=== PATIENT | male | born 1940 | race Caucasian/White ===

== ENCOUNTER 2021-06-30 20:50 | Inpatient (IN) | payer MEDICARE ==
--- NOTE | 2021-06-30 21:54 | ED ---
Chest Pain HPI - General Chief Complaint: Chest Pain Stated Complaint: Pain throughout left arm Source: patient, RN notes reviewed, old records reviewed Mode of arrival: ambulatory Limitations: no limitations - History of Present Illness Initial Comments: This is an 79-year-old male to the ER for evaluation patient presents today for evaluation regarding chest pain especially chest pain with exertion walking his dog. This happened on 2 different occasions today where he also became sweaty with shortness of breath chest pain chest pain to his left shoulder and left jaw. Patient originally thought it may be just muscle skeletal related but he has had history of CABG in the says feelings prior chest pain MD Complaint: chest pain -: hour(s) Onset: during exertion Pain Location: substernal, left chest Pain Radiation: none, LUE Severity: moderate Severity scale (1-10): 4 Quality: tightness Consistency: constant Improves With: nothing Worsens With: nothing Anginal Symptoms: diaphoresis, dyspnea Other Symptoms: palpitations Treatments Prior to Arrival: none - Related Data Home Medications Medication Instructions Recorded Confirmed Aspirin [Adult Low Dose Aspirin EC] 81 mg PO DAILY 01/12/16 01/12/16 Metoprolol Tartrate 25 mg PO DAILY 01/12/16 01/17/16 Pantoprazole [Protonix] 40 mg PO DAILY 01/12/16 01/17/16 Allergies Allergy/AdvReac Type Severity Reaction Status Date / Time No Known Allergies Allergy Verified 06/30/21 21:11 Review of Systems ROS Statement: Those systems with pertinent positive or pertinent negative responses have been documented in the HPI. ROS Other: All systems not noted in ROS Statement are negative. EKG Findings - EKG Comments: EKG Findings:: EKG shows sinus rhythm 88 NV 166 QRS 76 QTC 430 Past Medical History Past Medical History: CVA/TIA, GERD/Reflux Additional Past Medical History / Comment(s): PRE CA LESIONS REMOVED IN PAST, LESIONS REMOVED FROM BACK 01/12/16, TIA 2014, STATES NO RESIDUAL EFFECTS History of Any Multi-Drug Resistant Organisms: None Reported Past Surgical History: Cholecystectomy, Coronary Bypass/CABG Additional Past Surgical History / Comment(s): CABG X2 Past Anesthesia/Blood Transfusion Reactions: No Reported Reaction Past Psychological History: No Psychological Hx Reported Smoking Status: Never smoker Past Alcohol Use History: Occasional Past Drug Use History: None Reported - Past Family History Mother Family Medical History: Cancer Additional Family Medical History / Comment(s): COLON General Exam General appearance: alert, in no apparent distress Head exam: Present: atraumatic, normocephalic, normal inspection Eye exam: Present: normal appearance, PERRL, EOMI. Absent: scleral icterus, conjunctival injection, periorbital swelling ENT exam: Present: normal exam, mucous membranes moist Neck exam: Present: normal inspection. Absent: tenderness, meningismus, lymphadenopathy Respiratory exam: Present: normal lung sounds bilaterally. Absent: respiratory distress, wheezes, rales, rhonchi, stridor Cardiovascular Exam: Present: regular rate, normal rhythm, normal heart sounds. Absent: systolic murmur, diastolic murmur, rubs, gallop, clicks GI/Abdominal exam: Present: soft, normal bowel sounds. Absent: distended, tenderness, guarding, rebound, rigid Extremities exam: Present: normal inspection, full ROM, normal capillary refill. Absent: tenderness, pedal edema, joint swelling, calf tenderness Back exam: Present: normal inspection Neurological exam: Present: alert, oriented X3, CN II-XII intact Psychiatric exam: Present: normal affect, normal mood Skin exam: Present: warm, dry, intact, normal color. Absent: rash Course Vital Signs 06/30/21 06/30/21 21:05 22:12 Temperature 98.6 F Pulse Rate 89 75 Respiratory 19 16 Rate Blood Pressure 150/83 152/77 O2 Sat by Pulse 97 97 Oximetry - Reevaluation(s) Reevaluation #1: 07/01/21 00:18 Medical record is reviewed Reevaluation #2: 07/01/21 00:18 Patient does have persistently episodic chest pain here in the ER Reevaluation #3: 07/01/21 00:18 Patient is informed of results and questions are answered - Consultations Consultation #1: spoke w TEZ ok for admission Chest Pain MDM - MDM 81 male to the ER for evaluation patient presents today for evaluation regards to chest pain chest pain with exertion he does have non-ST elevated MT will be admitted for cardiac evaluation and treatment Critical Care Time Critical Care Time: Yes Total Critical Care Time: 31 Disposition Clinical Impression: Chest pain, Acute non-ST elevation myocardial infarction (NSTEMI) Disposition: ADMITTED IP TO THIS HOSP Condition: Serious Is patient prescribed a controlled substance at d/c from ED?: No Referrals: None,Stated [Primary Care Provider] - 1-2 days
--- NOTE | 2021-06-30 22:08 | XR ---
EXAMINATION TYPE: XR chest 2V DATE OF EXAM: 06/30/2021 COMPARISON: NONE HISTORY: Pain TECHNIQUE: 2 view FINDINGS: There is no heart failure nor confluent pneumonic infiltrate. Costophrenic angles are clear . Thoracic aorta is atheromatous. There is some spurring in the thoracic spine. IMPRESSION: No active cardiopulmonary disease. Normal heart.
[2021-06-30 22:35] LABS: ALT 33 U/L (4-49); African American GFR (CKD) >90 (>60 ml/min/1.73 sqM); Albumin 4.6 g/dL (3.5-5.0); Anion Gap 10 mmol/L; Blood Urea Nitrogen 13 mg/dL (9-20); Carbon Dioxide 23 mmol/L (22-30); Chloride 104 mmol/L (98-107); Glucose 71 mg/dL (74-99); Non-African American GFR(CKD) 85 (>60 ml/min/1.73 sqM); Sodium 137 mmol/L (137-145); Total Bilirubin 0.6 mg/dL (0.2-1.3); Total Protein 7.6 g/dL (6.3-8.2)
[2021-06-30 22:37] LABS: Partial Thromboplastin Time 23.3 sec (22.0-30.0); Prothrombin Time 10.7 sec (9.0-12.0)
[2021-06-30 22:41] LABS: HCT 36.9 % (39.0-53.0); HGB 13.1 gm/dL (13.0-17.5); MCHC 35.3 g/dL (31.0-37.0); MCV 96.2 fL (80.0-100.0); Mean Platelet Volume 7.4; Platelet Count 226 k/uL (150-450); RBC 3.84 m/uL (4.30-5.90); RDW 12.8 % (11.5-15.5); WBC 6.3 k/uL (3.8-10.6)
[2021-06-30 23:14] LABS: Band Neutrophils % 1 %; Eosinophils # (M) 0.25 k/uL (0-0.7); Lymphocytes # (M) 1.89 k/uL (1.0-4.8); Monocytes # (M) 0.57 k/uL (0-1.0); Neutrophils % (M) 56 %; Nucleated Red Blood Cells 0 /100 WBC (0-0); Total Cells Counted 100
[2021-06-30 23:17] LABS: AST 37 U/L (17-59); Alkaline Phosphatase 51 U/L (38-126); Magnesium 2.1 mg/dL (1.6-2.3); Potassium 4.1 mmol/L (3.5-5.1)
[2021-06-30 23:50] LABS: Creatine Kinase 202 U/L (55-170); Lipase 141 U/L (23-300)
[2021-07-01] MEDS ORDERED: NITROGLYCERIN SL TABS 0.4 MG TAB SUBLINGUAL PRN ×2 (00:12→10:17)
[2021-07-01] MEDS ORDERED: HEPARIN SODIUM 1,000 UN/ML (10ML VL) IV ONE (00:12)
[2021-07-01] MEDS ORDERED: ASPIRIN 81 MG PO STA (00:12)
[2021-07-01] MEDS ORDERED: MORPHINE SULFATE 4 MG/ML SYRINGE IV PRN (00:12)
[2021-07-01] MEDS: SODIUM CHLORIDE 0.9% 1,000 ML IV SCH ×2 (02:08→17:56)
[2021-07-01] MEDS: HEPARIN SOD,PORK IN 0.45% NACL 25,000 UNIT in 0.45% NACL 1 250ML.BAG IV SCH (02:09)
[2021-07-01] MEDS ORDERED: METOPROLOL TARTRATE 25 MG TAB PO SCH (09:00)
[2021-07-01] MEDS ORDERED: SODIUM CHLORIDE 0.9% 1,000 ML in EMPTY BAG 1 BAG IV ONE (10:17)
[2021-07-01] MEDS ORDERED: ALPRAZolam 0.25 MG TAB PO PRN (10:17)
[2021-07-01] MEDS ORDERED: ALPRAZolam 0.5 MG TAB PO PRN (10:17)
--- NOTE | 2021-07-01 10:28 | P.CRDCN ---
History of Present Illness Consult date: 07/01/21 Consult reason: chest pain History of present illness: The patient is an 81-year-old male with past medical history of coronary artery disease who follows with Dr. Nayak at [facility], who presented to the emergency room after experiencing chest pain over the last 2 months. The patient states he remains very active and typically walks 5-6 miles per day. Previously he had noted that he would develop some chest discomfort which would resolve quickly despite continued walking. Over the last 1-2 days he had had increased chest pain which caused him to have to stop and sit down. His most recent echo did have associated left jaw and facial discomfort. He states it did eventually resolve on its own without the use of nitroglycerin. DIAGNOSTICS: EKG shows sinus mechanism with 0.[address] depression in inferior lateral leads Chest x-ray shows no active cardiopulmonary disease Laboratory data: WBC 6.3, hemoglobin 13.1, hematocrit 36.9, platelet 226, sodium 137, potassium 4.1, BUN 13, creatinine 0.77, AST 37, ALT 33, troponin 0.10, 0.14, 0.13, BNP 81 Vital signs: Temp 98F, respiratory rate 16, pulse rate 72, SpO2 98% on room air, blood pressure 134/60 PAST MEDICAL HISTORY: Coronary artery disease status post CABG approximately 15 years prior, TIA, hypertension REVIEW OF SYSTEMS: No fever or chills. No cough or expectoration. No diaphoresis. Patient denies headache, dizziness, blurred vision, double vision. Patient denies any stomach discomfort. No nausea, vomiting. No hematochezia. No hematemesis. Denies any black stools or blood in his stools. Denies dysuria or hematuria. No muscle weakness or numbness. Positive for exertional chest pain with radiation to the left jaw. No dyspnea, orthopnea, or PND PHYSICAL EXAMINATION: This is a 81-year-old male in no apparent distress at the time of my examination. HEENT: Head is atraumatic, normocephalic. Pupils are equal, round. Sclerae anicteric. Conjunctivae are clear. Mucous membranes of the mouth are moist. Neck is supple. There is no jugular venous distention. No carotid bruit is heard. CHEST EXAMINATION: Lungs are clear to auscultation. No chest wall tenderness is noted on palpation or with deep breathing. HEART EXAMINATION: Heart regular rate and rhythm. S1, S2 heard. No murmurs, gallops or rub. ABDOMEN: Soft, nontender. Bowel sounds are heard. No organomegaly noted. EXTREMITIES: 2+ peripheral pulses with no evidence of peripheral edema and no calf tenderness noted. NEUROLOGIC EXAMINATION: Patient is awake, alert and oriented x3. FINAL ASSESSMENT AND PLAN: Non-ST elevated myocardial infarction, elevated troponins History of coronary artery disease, prior CABG History of hypertension History of TIA PLAN: Continue heparin drip Start on statin therapy Proceed with coronary angiogram The patient has been seen and evaluated. Plan of care has been reviewed and agreed upon by Dr Elias. Past Medical History Past Medical History: CVA/TIA, GERD/Reflux Additional Past Medical History / Comment(s): PRE CA LESIONS REMOVED IN PAST, LESIONS REMOVED FROM BACK 01/12/16, TIA 2014, STATES NO RESIDUAL EFFECTS History of Any Multi-Drug Resistant Organisms: None Reported Past Surgical History: Cholecystectomy, Coronary Bypass/CABG Additional Past Surgical History / Comment(s): CABG X2 Past Anesthesia/Blood Transfusion Reactions: No Reported Reaction Past Psychological History: No Psychological Hx Reported Smoking Status: Never smoker Past Alcohol Use History: Occasional Past Drug Use History: None Reported - Past Family History Mother Family Medical History: Cancer Additional Family Medical History / Comment(s): COLON Medications and Allergies Home Medications Medication Instructions Recorded Confirmed Type Aspirin [Adult Low Dose Aspirin EC] 81 mg PO DAILY 01/12/16 07/01/21 History Pantoprazole [Protonix] 40 mg PO DAILY 01/12/16 07/01/21 History amLODIPine [Norvasc] 5 mg PO HS 07/01/21 07/01/21 History Allergies Allergy/AdvReac Type Severity Reaction Status Date / Time No Known Allergies Allergy Verified 07/01/21 09:03 Physical Exam Vitals: Vital Signs Temp Pulse Resp BP Pulse Ox 07/01/21 05:21 98.0 F 72 16 134/60 98 07/01/21 02:18 97.7 F 77 16 146/90 98 06/30/21 22:12 75 16 152/77 97 06/30/21 21:05 98.6 F 89 19 150/83 97 Intake and Output 06/30/21 07/01/21 07/01/21 22:59 06:59 14:59 Other: Weight 68.946 kg Results 06/30/21 22:11 06/30/21 22:11 Cardiac Enzymes 06/30/21 06/30/21 07/01/21 Range/Units 22:11 22:11 01:56 AST 37 (17-59) U/L Troponin I 0.105 H* 0.140 H* (0.000-0.034) ng/mL 07/01/21 Range/Units 05:33 AST (17-59) U/L Troponin I 0.137 H* (0.000-0.034) ng/mL Coagulation 06/30/21 Range/Units 22:11 PT 10.7 (9.0-12.0) sec APTT 23.3 (22.0-30.0) sec CBC 06/30/21 Range/Units 22:11 WBC 6.3 (3.8-10.6) k/uL RBC 3.84 L (4.30-5.90) m/uL Hgb 13.1 (13.0-17.5) gm/dL Hct 36.9 L (39.0-53.0) % Plt Count 226 (150-450) k/uL Comprehensive Metabolic Panel 06/30/21 Range/Units 22:11 Sodium 137 (137-145) mmol/L Potassium 4.1 (3.5-5.1) mmol/L Chloride 104 (98-107) mmol/L Carbon Dioxide 23 (22-30) mmol/L BUN 13 (9-20) mg/dL Creatinine 0.77 (0.66-1.25) mg/dL Glucose 71 L (74-99) mg/dL Calcium 9.0 (8.4-10.2) mg/dL AST 37 (17-59) U/L ALT 33 (4-49) U/L Alkaline Phosphatase 51 (38-126) U/L Total Protein 7.6 (6.3-8.2) g/dL Albumin 4.6 (3.5-5.0) g/dL Current Medications Generic Name Dose Route Start Last Admin Trade Name Freq PRN Reason Stop Dose Admin Aspirin 325 mg 07/02/21 09:00 Aspirin 325 Mg Tab PO DAILY [facility] Atorvastatin Calcium 80 mg 07/01/21 09:00 Atorvastatin 80 Mg Tab PO DAILY GEOVANY Sodium Chloride 1,000 mls @ 20 mls/hr 07/01/21 00:15 07/01/21 02:08 Saline 0.9% IV 20 mls/hr .Q24H GEOVANY Administration Heparin Sodium/Sodium Chloride 250 mls @ 8.274 mls/hr 07/01/21 00:15 07/01/21 02:09 25,000 unit/ Sodium Chloride IV 12 units/kg/hr .Q24H GEOVANY 8.274 mls/hr Administration Protocol 12 UNITS/KG/HR Metoprolol Tartrate 25 mg 07/01/21 09:00 Metoprolol Tartrate 25 Mg Tab PO BID GEOVANY Morphine Sulfate 4 mg 07/01/21 00:12 Morphine Sulfate 4 Mg/Ml Syringe IV Q4HR PRN Chest Pain Nitroglycerin 0.4 mg 07/01/21 00:12 Nitroglycerin Sl Tabs 0.4 Mg Tab SUBLINGUAL Q5M PRN Chest Pain Intake and Output 06/30/21 07/01/21 07/01/21 22:59 06:59 14:59 Other: Weight 68.946 kg 06/30/21 22:11 06/30/21 22:11
[2021-07-01] MEDS: ATORVASTATIN 80 MG TAB PO SCH (13:22)
[2021-07-01] MEDS ORDERED: VERAPAMIL 2.5 MG/ML 2 ML AMP ONE (15:10)
[2021-07-01] MEDS ORDERED: LIDOCAINE 1% INJ 10MG/ML (20 ML MDV) ONE (15:10)
[2021-07-01] MEDS ORDERED: MIDAZOLAM 2 MG/2 ML VIAL IV ONE (15:22)
[2021-07-01] MEDS ORDERED: LIDOCAINE 1% INJ 10MG/ML (20 ML MDV) SQ ONE (15:22)
[2021-07-01] MEDS ORDERED: SODIUM CHLORIDE 0.9% 500 ML 500 ML IV ONE (15:23)
[2021-07-01] MEDS: HEPARIN SODIUM 1,000 UN/ML (10ML VL) IV ONE ×2 (15:50→16:12)
[2021-07-01] MEDS ORDERED: IOPAMIDOL-370 100ML BTL INJ ONE ×2 (15:51→16:23)
[2021-07-01] MEDS ORDERED: fentaNYL (PF) 50 MCG/ML 2 ML AMP ONE (15:53)
[2021-07-01] MEDS ORDERED: NITROGLYCERIN SL TABS 0.4 MG TAB SUBLINGUAL ONE (15:53)
[2021-07-01] MEDS ORDERED: NITROGLYCERIN 1000MCG/10ML SYRINGE INTRACORON ONE (16:24)
[2021-07-01] MEDS ORDERED: CLOPIDOGREL 75 MG TAB PO ONE (16:24)
[2021-07-01] MEDS ORDERED: CLOPIDOGREL 75 MG TAB ONE (16:25)
[2021-07-01] MEDS ORDERED: fentaNYL (PF) 50 MCG/ML 2 ML AMP IV ONE (16:41)
--- NOTE | 2021-07-01 18:27 | CC ---
CARDIAC CATHETERIZATION REPORT DATE OF SERVICE: 07/01/2021. PROCEDURE: 1. Left heart catheterization and coronary angiography. 2. PTCA and stenting of a torres martinez proximal and mid LAD with two drug-eluting stents. PERFORMED BY: Dr. Ritu Newman. Moderate conscious sedation time was 73 minutes. Patient was administered Versed. Oxygen saturation, hemodynamics and EKG were monitored closely. CLINICAL INFORMATION: Mr. Tommy Sandra is a patient who is 81 years of age, a remarkably active luis daniel who underwent aortocoronary bypass surgery with robotic surgery, two bypasses, about 10 years ago at [facility] in the [facility]. 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 He came into the hospital with chest pain strongly suggestive of angina and was seen by Dr. Elias, advised cardiac catheterization after due discussion regarding the rationale, risks, benefits and options. PROCEDURE NOTE: Under local anesthesia and strict aseptic precautions, a 6-Divehi introducer was placed in the right femoral artery. Using a standard left Kiersten catheter I performed selective coronary angiography of the left system. A Johnnie catheter was used to perform selective coronary angiography of the right coronary artery and the same catheter was used to check a ROSS injection. I then used a pigtail catheter at the end of the procedure to check the LV pressure, but LV gram was not performed. The sheath was taken out and Angio-Seal device used to secure hemostasis and he was sent to the room in stable condition. I performed the PCI procedure expeditiously. CARDIAC CATHETERIZATION FINDINGS: LEFT MAIN CORONARY ARTERY: Long, patent, disease-free vessel that bifurcates into LAD and circumflex. LEFT ANTERIOR DESCENDING CORONARY ARTERY: This is a highly diseased vessel from the proximal and mid portion and the diagonal branch has some competitive flow, but the entire vessel is diffusely diseased until the middle one-third, and distal one-third is again diffuse diseased. There are multiple areas of narrowing of anywhere from 80% to 99%. There is a small diagonal branch that comes off which has mild competitive flow. LEFT POSTERIOR CIRCUMFLEX CORONARY ARTERY: Technically this is a nondominant vessel, gives off obtuse marginal branch that runs laterally, a groove branch, and several small branches that have mild diffuse disease, but no critical stenosis is noted in the nondominant circumflex. RIGHT CORONARY ARTERY: This is a very dominant vessel, extremely tortuous, has mild diffuse irregularities throughout. Lesions are anywhere from 30% to 50%. It distally bifurcates in large PDA and PLV, which also have diffuse disease. Mid RCA therefore has about a 40% to 50% narrowing, but no significant disease. Very dominant vessel supplies a lot of myocardium. Left ventriculogram was not performed. LEFT INTERNAL MAMMARY ARTERY GRAFT TO LAD: This graft is opacified and seems to be supplying a diagonal artery. There is no LAD attachment that is evident and it is not opacified, so I am assuming that this is a jump graft and the diagonal is opacified. LAD is not opacified. There is not much flow noted in the LAD. I searched for other vein grafts in multiple areas, but there were no other grafts available. I also took a brief injection of the right internal mammary artery graft and did not see any attachment. I therefore assumed that the LAD attachment of ROSS is occluded and therefore LAD is now a territory with ischemia. Diagonal appears to be well perfused through the ROSS graft. I proceeded to perform PCI of the torres martinez LAD. PCI PROCEDURE DETAILS: I attempted a JL3.5 guide and then switched over to an XB LAD3.5. With this I had decent guide support. A run-through wire and a Super Cross catheter of 45-degree angle were used to gain access into the LAD and I crossed the tight lesion in the mid portion, kept the wire in the distal LAD. Predilatation was performed with a 2.0 caliber 15 mm NC Trek balloon, and then I used a 20 mm long 2.5 caliber NC Trek balloon which pre-dilated the entire length of proximal and mid LAD. A 28 mm long 3.0 caliber Xience stent was deployed in the mid portion and proximal to it and telescoping into it was a 3.25, 15 mm long Xience stent. Excellent angiographic result was achieved. Patient had chest pain and precordial subtle ST elevation. Excellent angiographic result without complication was achieved. ACT was 256. The patient received 600 mg of Plavix, and heparin was used to keep ACT between 250 and 300. Excellent result was achieved. No family is available to talk to. The sheath was taken out and patient was sent to the room in a stable condition. The torres martinez LAD was therefore stented with two drug-eluting stents and the ROSS seems to supply the diagonal only. RCA has moderate disease. Circumflex has diffuse disease. Excellent result. Patient was sent to the telemetry unit. MMSHYLA / STEFFANYN: [id number] /
[2021-07-01] MEDS: LOSARTAN 50 MG TAB PO SCH (20:51)
[2021-07-01] MEDS: amLODIPine 5 MG TAB PO SCH (20:51)
[2021-07-01] MEDS: METOPROLOL TARTRATE 12.5 MG TAB PO SCH (20:52)
[2021-07-01] MEDS: ACETAMINOPHEN TAB 325 MG TAB PO PRN (23:29)
--- NOTE | 2021-07-02 00:26 | P.HPIM ---
History of Present Illness H&P Date: 07/01/21 Chief Complaint: Chest pain Mr. Sandra is a 81-year-old male with a past medical history of CVA/TIA, GERD, coronary artery disease status post CABG G x2 coming into the hospital with a chief complaint of chest pain. Patient states that he started to have chest d iscomfort that progressively worsened over the past couple of days. Patient states its mostly in the left side of the chest with slight radiation to the left jaw and left shoulder. He mentions that on couple of occasions when he had a chest pain he had associated difficulty in breathing and was sweating. Patient has history of coronary artery disease and had CABG done in the past. Patient denied having any cough or difficulty in breathing with it. No abdominal pain nausea vomiting or diarrhea. No dysuria hematuria. He denies having any headaches, blurring of vision, neck stiffness or weakness in his extremities. He denies having any recent travel or sick contacts. In the ER at the time of admission his vitals have been stable and blood pressure 150/83, temperature 98.6 and heart rate of 89 patient had an EKG showing normal sinus rhythm and chest x-ray showing no acute cardiopulmonary process and he is labs showed elevated troponins at 0.105, 0.140. Cardiology has been consulted and the patient was taken to [facility] this afternoon and had stenting of [place] proximal and mid LAD with 2 drug-eluting stents. He is currently lying comfortable in the bed states that he still has some tingling sensation/burning sensation in both his upper extremities. He does not have any chest heaviness or chest pain. Review of Systems REVIEW OF SYSTEMS: CONSTITUTIONAL: No fever, no malaise, no fatigue. HEENT: No headache, no neck stiffness, no blurring of vision CARDIOVASCULAR: As per HPI PULMONARY: No cough or difficulty in breathing GASTROINTESTINAL: No Abdominal pain nausea vomiting or diarrhea NEUROLOGICAL: No weakness of extremities HEMATOLOGICAL: Denies any bleeding or petechiae. GENITOURINARY: Denies any burning micturition, frequency, or urgency. MUSCULOSKELETAL/RHEUMATOLOGICAL: Denies any joint pain, swelling, or any muscle pain. ENDOCRINE: Denies polyuria polydipsia or heat or cold intolerance The rest of the 14-point review of systems is negative. Past Medical History Past Medical History: CVA/TIA, GERD/Reflux Additional Past Medical History / Comment(s): PRE CA LESIONS REMOVED IN PAST, LESIONS REMOVED FROM BACK 01/12/16, TIA 2014, STATES NO RESIDUAL EFFECTS History of Any Multi-Drug Resistant Organisms: None Reported Past Surgical History: Cholecystectomy, Coronary Bypass/CABG Additional Past Surgical History / Comment(s): CABG X2 Past Anesthesia/Blood Transfusion Reactions: No Reported Reaction Past Psychological History: No Psychological Hx Reported Smoking Status: Never smoker Past Alcohol Use History: Occasional Past Drug Use History: None Reported - Past Family History Mother Family Medical History: Cancer Additional Family Medical History / Comment(s): COLON Father Family Medical History: Coronary Artery Disease (CAD) Medications and Allergies Home Medications Medication Instructions Recorded Confirmed Type Aspirin [Adult Low Dose Aspirin EC] 81 mg PO DAILY 01/12/16 07/01/21 History Pantoprazole [Protonix] 40 mg PO DAILY 01/12/16 07/01/21 History amLODIPine [Norvasc] 5 mg PO HS 07/01/21 07/01/21 History Allergies Allergy/AdvReac Type Severity Reaction Status Date / Time No Known Allergies Allergy Verified 07/01/21 09:03 Physical Exam Vitals: Vital Signs Temp Pulse Resp BP Pulse Ox 07/01/21 05:21 98.0 F 72 16 134/60 98 07/01/21 02:18 97.7 F 77 16 146/90 98 06/30/21 22:12 75 16 152/77 97 06/30/21 21:05 98.6 F 89 19 150/83 97 Intake and Output 06/30/21 07/01/21 07/01/21 22:59 06:59 14:59 Intake Total 93.22 Balance 93.22 Intake: Intake, IV Titration 93.22 Amount Heparin Sod,Pork in 0.45% 93.22 NaCl 25,000 unit In 0.45 % NaCl 1 250ml.bag @ 12 UNITS/KG/HR 8.274 mls/hr IV .Q24H [facility] Rx#: [id number] Other: Weight 68.946 kg PHYSICAL EXAMINATION: GENERAL: Comfortably lying up in the bed appears to be no acute distress. HEENT: Pupils are round and equally reacting to light. EOMI. No scleral icterus. No conjunctival pallor. CARDIOVASCULAR: S1 and S2 present. No murmurs, rubs, or gallops. PULMONARY: Bilateral breath sounds positive, decrease at the bases . No wheeze or crackles. ABDOMEN: Soft,non -tender, normal bowel sounds. No guarding or rigidity. MUSCULOSKELETAL: No joint swelling or deformity. EXTREMITIES: No edema NEUROLOGICAL: Gross neurological examination did not reveal any focal deficits. SKIN:No rash Results CBC & Chem 7: 06/30/21 22:11 06/30/21 22:11 Labs: Abnormal Lab Results - Last 24 Hours (Table) 06/30/21 06/30/21 06/30/21 Range/Units 22:11 22:11 22:11 RBC 3.84 L (4.30-5.90) m/uL Hct 36.9 L (39.0-53.0) % APTT (22.0-30.0) sec Glucose 71 L (74-99) mg/dL Creatine Kinase 202 H (55-170) U/L Troponin I 0.105 H* (0.000-0.034) ng/mL 07/01/21 07/01/21 07/01/21 Range/Units 01:56 05:33 10:27 RBC (4.30-5.90) m/uL Hct (39.0-53.0) % APTT 39.8 H (22.0-30.0) sec Glucose (74-99) mg/dL Creatine Kinase (55-170) U/L Troponin I 0.140 H* 0.137 H* (0.000-0.034) ng/mL Assessment and Plan Assessment: ASSESSMENT NSTEMI status post stenting of LAD with 2 stents History of coronary artery disease status post CABG History of CVA/TIA GERD History of cholecystectomy Former smoker PLAN: Patient had stenting of LAD with 2 drug-eluting stents, currently chest pain-free. Continue with aspirin, statin, Plavix, beta-sravani, BETTIE inhibitor. Continue with his home medications. Will order a.m. labs. Further recommendations to follow depending on the progress of the patient.
[2021-07-02] MEDS: HEPARIN SOD,PORK IN 0.45% NACL 25,000 UNIT in 0.45% NACL 1 250ML.BAG IV SCH (00:36)
[2021-07-02] MEDS: SODIUM CHLORIDE 0.9% 1,000 ML IV SCH ×3 (00:37→19:31)
[2021-07-02] MEDS: PANTOPRAZOLE 40 MG TABLET PO SCH (06:33)
[2021-07-02] MEDS: ACETAMINOPHEN TAB 325 MG TAB PO PRN (06:35)
[2021-07-02 07:41] LABS: Basophils % (A) 0 %; Eosinophils # (A) 0.1 k/uL (0-0.7); Eosinophils % (A) 1 %; HGB 12.9 gm/dL (13.0-17.5); Lymphocytes # (A) 0.9 k/uL (1.0-4.8); Lymphocytes % (A) 11 %; MCH 33.2 pg (25.0-35.0); MCV 97.6 fL (80.0-100.0); Mean Platelet Volume 8.1; Monocytes # (A) 0.6 k/uL (0-1.0); Monocytes % (A) 7 %; Neutrophils # (A) 6.2 k/uL (1.3-7.7); Neutrophils % (A) 77 %; Platelet Count 217 k/uL (150-450); RBC 3.89 m/uL (4.30-5.90); RDW 12.7 % (11.5-15.5)
[2021-07-02 07:56] LABS: African American GFR (CKD) >90 (>60 ml/min/1.73 sqM); Anion Gap 9 mmol/L; Blood Urea Nitrogen 9 mg/dL (9-20); Calcium 8.7 mg/dL (8.4-10.2); Carbon Dioxide 23 mmol/L (22-30); Chloride 102 mmol/L (98-107); Glucose 131 mg/dL (74-99); Non-African American GFR(CKD) 88 (>60 ml/min/1.73 sqM); Potassium 4.1 mmol/L (3.5-5.1); Sodium 134 mmol/L (137-145)
[2021-07-02] MEDS ORDERED: ASPIRIN 325 MG TAB PO SCH (09:00)
[2021-07-02] MEDS: ATORVASTATIN 80 MG TAB PO SCH (09:11)
[2021-07-02] MEDS: METOPROLOL TARTRATE 12.5 MG TAB PO SCH ×2 (09:11→20:28)
[2021-07-02] MEDS: ASPIRIN 81 MG PO SCH (09:11)
[2021-07-02] MEDS: CLOPIDOGREL 75 MG TAB PO SCH (09:11)
--- NOTE | 2021-07-02 12:43 | P.PN ---
Subjective Progress Note Date: 07/02/21 The patient is an 81-year-old male with past medical history of coronary artery disease who follows with a security chief museum out of [facility]. He is currently admitted with a non-ST elevated myocardial infarction and underwent stenting of his proximal and mid LAD yesterday with Dr. CHER Newman. The patient has a history of robotic CABG approximately 15 years prior. ROSS to LAD appears to be occluded at the attachment. Diagonal branch appears to be well perfused through the ROSS graft. The patient was interviewed and examined as he walked around his room. He is very eager to be discharged. He states he feels well and denies any chest pain or chest pressure since his stent was performed yesterday. No dyspnea, orthopnea, palpitations, dizziness, lightheadedness. GENERAL: Well-appearing, well-nourished and in no acute distress. NECK: Supple without JVD or thyromegaly. LUNGS: Breath sounds clear to auscultation bilaterally. Respiration equal and unlabored. No wheezes, rales or rhonchi. HEART: Regular rate and rhythm without murmurs, rubs or gallops. S1 and S2 he yesica. EXTREMITIES: Normal range of motion, no edema. No clubbing or cyanosis. Peripheral pulses intact and strong. PROCEDURE SITE: No hematoma. VITALS: 98.1F, pulse 86, respiratory rate 18, blood pressure 119/75, SpO2 90% on room air TELEMETRY: Sinus rhythm in the mid 90s LABS: WBC 0.0, hemoglobin 12.9, hematocrit 30.0, sodium 134, potassium 4.1, BUN 9, creatinine 0.1 IMPRESSION: Non-ST elevated myocardial infarction, status post stenting to the LAD Coronary artery disease, history of CABG 2 approximately 15 years prior Hypertension, was started on losartan 50 daily at bedtime Dyslipidemia, was not taking statin medication prior to admission, resume atorvastatin PLAN: Increase metoprolol 25 twice a day Echocardiogram and Doppler study prior to discharge Continue to monitor her overnight Follow-up with primary security chief museum in 1-2 weeks The patient has been seen and evaluated. Plan of care has been reviewed and agreed upon by Dr lEias. Objective - Vital Signs Vital signs: Vital Signs Temp 98.1 F 07/02/21 11:40 Pulse 86 07/02/21 11:40 Resp 18 07/02/21 11:40 BP 119/75 07/02/21 11:40 Pulse Ox 98 07/02/21 11:40 Intake & Output 07/01/21 07/02/21 07/02/21 18:59 06:59 18:59 Intake Total 463.22 240 Output Total 750 350 300 Balance -286.78 -350 -60 Weight 68.946 kg 69.3 kg Intake: IV 250 Intake, IV Titration 93.22 Amount Heparin Sod,Pork in 0.45% 93.22 NaCl 25,000 unit In 0.45 % NaCl 1 250ml.bag @ 12 UNITS/KG/HR 8.274 mls/hr IV .Q24H [facility] Rx#: [id number] Oral 120 240 Output: Urine 750 350 300 Other: Voiding Method Urinal Urinal Urinal # Voids 2 - Labs CBC & Chem 7: 07/02/21 07:15 07/02/21 07:15 Labs: Abnormal Lab Results - Last 24 Hours (Table) 07/02/21 07/02/21 Range/Units 07:15 07:15 RBC 3.89 L (4.30-5.90) m/uL Hgb 12.9 L (13.0-17.5) gm/dL Hct 38.0 L (39.0-53.0) % Lymphocytes # 0.9 L (1.0-4.8) k/uL Sodium 134 L (137-145) mmol/L Glucose 131 H (74-99) mg/dL
[2021-07-02 12:51] LABS: Chol/HDL Ratio 4.66; Cholesterol 163 mg/dL (0-200); LDL Cholesterol,Calculated 95.2 mg/dL (0.0-131.0)
[2021-07-02] MEDS: METOPROLOL TARTRATE 25 MG TAB PO SCH (20:25)
[2021-07-02] MEDS: amLODIPine 5 MG TAB PO SCH (20:25)
[2021-07-02] MEDS: LOSARTAN 50 MG TAB PO SCH (20:25)
--- NOTE | 2021-07-03 01:17 | P.PN ---
Subjective Progress Note Date: 07/02/21 Principal diagnosis: NSTEMI Mr. Sandra is a 81-year-old male with a past medical history of CVA/TIA, GERD, coronary artery disease status post CABG G x2 coming into the hospital with a chief complaint of chest pain. Patient states that he started to have chest discomfort that progressively worsened over the past couple of days. Patient states its mostly in the left side of the chest with slight radiation to the left jaw and left shoulder. He mentions that on couple of occasions when he had a chest pain he had associated difficulty in breathing and was sweating. Patient has history of coronary artery disease and had CABG done in the past.Patient denied having any cough or difficulty in breathing with it. No abdominal pain nausea vomiting or diarrhea. No dysuria hematuria. He denies having any headaches, blurring of vision, neck stiffness or weakness in his extremities. He denies having any recent travel or sick contacts. In the ER at the time of admission his vitals have been stable and blood pressure 150/83, temperature 98.6 and heart rate of 89 patient had an EKG showing normal sinus rhythm and chest x-ray showing no acute cardiopulmonary pr ocess and he is labs showed elevated troponins at 0.105, 0.140. Cardiology has been consulted and the patient was taken to [facility] this afternoon and had stenting of [place] proximal and mid LAD with 2 drug-eluting stents. He is currently lying comfortable in the bed states that he still has some tingling sensation/burning sensation in both his upper extremities. He does not have any chest heaviness or chest pain. On 07/02/2021 -patient is seen and examined at bedside. Patient denies having any chest discomfort. He states that overall he feels much better in terms of chest heaviness and difficulty in breathing. Patient denies having any fevers chills or rigors. No abdominal pain nausea vomiting or diarrhea. No dysuria hematuria. On reviewing the patient's vitals temperature of 98.7, heart rate 85, respiratory 16, blood pressure 146/68, saturating at 97% on room air. Patient's labs revealed hemoglobin of 12.9 platelets of 217. Sodium 134 potassium 4.1 chloride 102, bicarb 23, BUN 9, creatinine 0.71. Patient's LDL 95. Patient's medications have been reviewed he is on Tylenol, Xanax, Lasix, statin, Lipitor, Plavix, Cozaar, Lopressor, Protonix. Objective - Vital Signs Vital signs: Vital Signs Temp 98.1 F 07/02/21 11:40 Pulse 86 07/02/21 11:40 Resp 18 07/02/21 11:40 BP 119/75 07/02/21 11:40 Pulse Ox 98 07/02/21 11:40 Intake & Output 07/01/21 07/02/21 07/02/21 18:59 06:59 18:59 Intake Total 463.22 360 Output Total 750 350 300 Balance -286.78 -350 60 Weight 68.946 kg 69.3 kg Intake: IV 250 Intake, IV Titration 93.22 Amount Heparin Sod,Pork in 0.45% 93.22 NaCl 25,000 unit In 0.45 % NaCl 1 250ml.bag @ 12 UNITS/KG/HR 8.274 mls/hr IV .Q24H [facility] Rx#: [id number] Oral 120 360 Output: Urine 750 350 300 Other: Voiding Method Urinal Urinal Urinal # Voids 2 - Exam PHYSICAL EXAMINATION: GENERAL: Comfortably lying up in the bed appears to be no acute distress. HEENT: Pupils are round and equally reacting to light. EOMI. No scleral icterus. No conjunctival pallor. CARDIOVASCULAR: S1 and S2 present. No murmurs, rubs, or gallops. PULMONARY: Bilateral breath sounds positive, decrease at the bases . No wheeze or crackles. ABDOMEN: Soft,non -tender, normal bowel sounds. No guarding or rigidity. MUSCULOSKELETAL: No joint swelling or deformity. EXTREMITIES: No edema NEUROLOGICAL: Gross neurological examination did not reveal any focal deficits. SKIN:No rash - Labs CBC & Chem 7: 07/02/21 07:15 07/02/21 07:15 Labs: Abnormal Lab Results - Last 24 Hours (Table) 07/02/21 07/02/21 Range/Units 07:15 07:15 RBC 3.89 L (4.30-5.90) m/uL Hgb 12.9 L (13.0-17.5) gm/dL Hct 38.0 L (39.0-53.0) % Lymphocytes # 0.9 L (1.0-4.8) k/uL Sodium 134 L (137-145) mmol/L Glucose 131 H (74-99) mg/dL Triglycerides 164.0 H (0.0-149.0) mg/dL HDL Cholesterol 35.0 L (40.0-60.0) mg/dL Assessment and Plan Assessment: ASSESSMENT NSTEMI status post stenting of LAD with 2 stents History of coronary artery disease status post CABG History of CVA/TIA GERD History of cholecystectomy Former smoker PLAN: Patient had stenting of LAD with 2 drug-eluting stents, currently chest pain-free and feels more energetic. Continue with aspirin, statin, Plavix, beta-sravani, BETTIE inhibitor. Continue with his home medications. Will order a.m. labs. Further recommendations to follow depending on the progress of the patient.
[2021-07-03] MEDS: PANTOPRAZOLE 40 MG TABLET PO SCH (06:18)
[2021-07-03] MEDS: HEPARIN SOD,PORK IN 0.45% NACL 25,000 UNIT in 0.45% NACL 1 250ML.BAG IV SCH (10:05)
[2021-07-03] MEDS: SODIUM CHLORIDE 0.9% 1,000 ML IV SCH ×2 (10:05→10:06)
[2021-07-03] MEDS: ASPIRIN 81 MG PO SCH (10:06)
[2021-07-03] MEDS: METOPROLOL TARTRATE 12.5 MG TAB PO SCH ×2 (10:06→10:07)
[2021-07-03] MEDS: METOPROLOL TARTRATE 25 MG TAB PO SCH (10:07)
[2021-07-03] MEDS: CLOPIDOGREL 75 MG TAB PO SCH (10:07)
[2021-07-03] MEDS: ATORVASTATIN 80 MG TAB PO SCH (10:07)
--- NOTE | 2021-07-03 10:23 | ECHOF ---
Referral Reason:NSTEMI MEASUREMENTS -------- HEIGHT: 165.1 cm WEIGHT: 68.9 kg BP: 129/69 RVIDd: 3.3 cm (< 3.3) IVSd: 1.3 cm (0.6 - 1.1) LVIDd: 3.3 cm (3.9 - 5.3) LVPWd: 1.5 cm (0.6 - 1.1) IVSs: 1.8 cm LVIDs: 2.1 cm LVPWs: 1.9 cm LAESV Index (A-L): 22.64 ml/m Ao Diam: 2.6 cm (2.0 - 3.7) AV Cusp: 1.5 cm (1.5 - 2.6) LA Diam: 3.3 cm (2.7 - 3.8) MV E Jac: 0.83 m/s MV DecT: 270 ms MV A Jac: 1.38 m/s MV E/A Ratio: 0.60 AV maxP.88 mmHg AV meanP.55 mmHg RAP: 5.00 mmHg RVSP: 21.53 mmHg FINDINGS -------- Sinus rhythm. This was a technically adequate study. The left ventricular size is normal. There is mild concentric left ventricular hypertrophy. Overa ll left ventricular systolic function is normal with, an EF between 55 - 60 %. The right ventricle is normal in size. Normal LA size by volume 22+/-6 ml/m2. The right atrial size is normal. Interatrial and interventricular septum intact. The aortic valve is trileaflet and appears structurally normal. There is moderate aortic valve scle rosis. There is no evidence of aortic regurgitation. Moderate mitral annular calcification present. No mitral regurgitation. Mild tricuspid regurgitation present. There is no evidence of pulmonary hypertension. The right v entricular systolic pressure, as measured by Doppler, is 21.53mmHg. There is no pulmonic regurgitation present. The aortic root size is normal. IVC Not well visulized. There is no pericardial effusion. CONCLUSIONS -------- 1. The left ventricular size is normal. 2. There is mild concentric left ventricular hypertrophy. 3. Overall left ventricular systolic function is normal with, an EF between 55 - 60 %. 4. The aortic valve is trileaflet and appears structurally normal. 5. There is moderate aortic valve sclerosis. 6. Moderate mitral annular calcification present. 7. Mild tricuspid regurgitation present. INDEPENDENT MARKETING CONSULTANT: Clarissa Mesa RDCS
[2021-07-03 13:41] VITALS: BP 131/62; PULSE 83; RESP 17; TEMP 98.6
--- NOTE | 2021-07-03 14:24 | P.PN ---
Subjective Progress Note Date: 07/03/21 HISTORY OF PRESENT ILLNESS: The patient is an 81-year-old male with past medical history of coronary artery disease who follows with a order fulfillment specialist out of [facility]. He is currently admitted with a non-ST elevated myocardial infarction and underwent stenting of his proximal and mid LAD yesterday with Dr. CHER Newman. The patient has a history of robotic CABG approximately 15 years prior. ROSS to LAD appears to be occluded at the attachment. Diagonal branch appears to be well perfused through the ROSS graft. 07/02/2021 The patient was interviewed and examined as he walked around his room. He is very eager to be discharged. He states he feels well and denies any chest pain or chest pressure since his stent was performed yesterday. No dyspnea, orthopn ea, palpitations, dizziness, lightheadedness. 07/03/2021 Patient examined this morning at the bedside. Patient has been up ambulating in his room. He denies chest pain or pressure. He denies shortness of breath. Vital signs are stable. Patient is anxious to be discharged home. PHYSICAL EXAM: VITAL SIGNS: Reviewed. GENERAL: Well-developed in no acute distress. NECK: Supple. No JVD or thyromegaly LUNGS: Respirations even and unlabored. Lungs essentially clear to auscultation bilaterally. HEART: Regular rate and rhythm. S1 and S2 heard. EXTREMITIES: Normal range of motion. No clubbing or cyanosis. Peripheral pulses intact. No lower extremity edema ASSESSMENT: Non-STEMI, status post PCI to LAD Coronary artery disease with history of CABG Hypertension Hyperlipidemia PLAN: Patient is stable for discharge home today from a cardiac standpoint He is to follow up on an outpatient basis Nurse practitioner note has been reviewed by physician. Signing provider agrees with the documented findings, assessment, and plan of care. Objective - Vital Signs Vital signs: Vital Signs Temp 98.6 F 07/03/21 13:40 Pulse 83 07/03/21 13:40 Resp 17 07/03/21 13:40 BP 131/62 07/03/21 13:40 Pulse Ox 96 07/03/21 13:40 Intake & Output 07/02/21 07/03/21 07/03/21 18:59 06:59 18:59 Intake Total 600 480 Output Total 1200 Balance -600 480 Weight 69 kg Intake: Oral 600 480 Output: Urine 1200 Other: Voiding Method Urinal Urinal Toilet Urinal # Voids 2 - Labs CBC & Chem 7: 07/02/21 07:15 07/02/21 07:15
== END 2021-07-03 17:17 | disposition home or self-care (01) | DRG 247 ==
LOC: EC 20:50 → 3SCARD 07-01 00:14
PROVIDERS: ADMIT Hospitalist; ATTEND Hospitalist
PROC: B2111ZZ Fluoroscopy of Multiple Coronary Arteries using Low Osmolar Contrast (ICD-10-PCS; 2021-07-01)
PROC: B2131ZZ Fluoroscopy of Multiple Coronary Artery Bypass Grafts using Low Osmolar Contrast (ICD-10-PCS; 2021-07-01)
PROC: 027035Z Dilation of Coronary Artery, One Artery with Two Drug-eluting Intraluminal Devices, Percutaneous Approach (ICD-10-PCS; principal; 2021-07-01 14:30)
PROC: 4A023N7 Measurement of Cardiac Sampling and Pressure, Left Heart, Percutaneous Approach (ICD-10-PCS; 2021-07-01 14:30)
DX: I21.4 Non-ST elevation (NSTEMI) myocardial infarction (principal); I25.10 Atherosclerotic heart disease of native coronary artery without angina pectoris; K21.9 Gastro-esophageal reflux disease without esophagitis; I10 Essential (primary) hypertension; E78.5 Hyperlipidemia, unspecified; Z79.82 Long term (current) use of aspirin; Z79.899 Other long term (current) drug therapy; Z82.49 Family history of ischemic heart disease and other diseases of the circulatory system; Z86.73 Personal history of transient ischemic attack (TIA), and cerebral infarction without residual deficits; Z87.891 Personal history of nicotine dependence; Z90.49 Acquired absence of other specified parts of digestive tract; Z95.1 Presence of aortocoronary bypass graft
CPT/HCPCS: 36415; 71046; 80048; 80053; 80061; 82550; 83690; 83735; 83880; 84484; 85025; 85610; 85730; 93005; 93306; 93458; 99291

== ENCOUNTER 2021-07-08 19:07 | Inpatient (IN) | payer MEDICARE ==
[2021-07-08] MEDS ORDERED: ACETAMINOPHEN TAB 500 MG TAB PO STA (19:36)
--- NOTE | 2021-07-08 19:48 | ED ---
General Adult HPI - General Chief complaint: Shortness of Breath Stated complaint: weakness, SOB Time Seen by Provider: 07/08/21 19:20 Source: patient, family Mode of arrival: ambulatory Limitations: no limitations - History of Present Illness Initial comments: 81-year-old male patient presents to the emergency department today for evaluation of shortness of breath, fatigue, decreased appetite. States he has been feeling this way for about a week after being discharged from the hospital having 2 stents placed in his LAD. States that he is sleeping more than usual. States that he feels weak and like he can't even walk up a flight of stairs. States he generally walks 3-5 miles per day. Denies any nausea or vomiting with states he has no appetite does not 18. Denies any headache, blurred vision, double vision. Denies any numbness, tingling, weakness to his extremities. Denies any recent falls. States he does feel quite short of breath as well. Denies any cough or congestion. He has been having elevated temperatures. Patient denies any recent rash, chest pain, abdominal pain, diarrhea, constipation, back pain, dizziness, weakness, hematuria, dysuria, urinary urgency, urinary frequency, or any other complaints. - Related Data Home Medications Medication Instructions Recorded Confirmed Aspirin [Adult Low Dose Aspirin EC] 81 mg PO DAILY 01/12/16 07/08/21 Pantoprazole [Protonix] 40 mg PO DAILY 01/12/16 07/08/21 amLODIPine [Norvasc] 5 mg PO HS 07/01/21 07/08/21 Previous Rx's Medication Instructions Recorded Atorvastatin [Lipitor] 80 mg PO DAILY 30 Days #30 tab 07/03/21 Clopidogrel [Plavix] 75 mg PO DAILY 30 Days #30 tab 07/03/21 Losartan [Cozaar] 50 mg PO HS 30 Days #30 tab 07/03/21 Metoprolol Tartrate [Lopressor] 12.5 mg PO BID 30 Days #60 tab 07/03/21 Metoprolol Tartrate [Lopressor] 25 mg PO BID 30 Days #60 tab 07/03/21 Allergies Allergy/AdvReac Type Severity Reaction Status Date / Time No Known Allergies Allergy Verified 07/08/21 21:37 Review of Systems ROS Statement: Those systems with pertinent positive or pertinent negative responses have been documented in the HPI. ROS Other: All systems not noted in ROS Statement are negative. Past Medical History Past Medical History: CVA/TIA, GERD/Reflux Additional Past Medical History / Comment(s): PRE CA LESIONS REMOVED IN PAST, LESIONS REMOVED FROM BACK 01/12/16, TIA 2014, STATES NO RESIDUAL EFFECTS History of Any Multi-Drug Resistant Organisms: None Reported Past Surgical History: Cholecystectomy, Coronary Bypass/CABG, Heart Catheterization With Stent Additional Past Surgical History / Comment(s): CABG X2 Past Anesthesia/Blood Transfusion Reactions: No Reported Reaction Past Psychological History: No Psychological Hx Reported Smoking Status: Never smoker Past Alcohol Use History: Occasional Past Drug Use History: None Reported - Past Family History Mother Family Medical History: Cancer Additional Family Medical History / Comment(s): COLON Father Family Medical History: Coronary Artery Disease (CAD) General Exam Limitations: no limitations General appearance: alert, in no apparent distress, other (This is a well-developed, well-nourished elderly male patient in no acute distress. Vital signs upon presentation are temperature 101.4F oral, pulse 94, respirations 20, blood pressure 135/69, pulse ox 96% on room air.) Respiratory exam: Present: normal lung sounds bilaterally. Absent: respiratory distress, wheezes, rales, rhonchi, stridor Cardiovascular Exam: Present: regular rate, normal rhythm, normal heart sounds. Absent: systolic murmur, diastolic murmur, rubs, gallop, clicks GI/Abdominal exam: Present: soft, normal bowel sounds. Absent: distended, tenderness, guarding, rebound, rigid Neurological exam: Present: alert, oriented X3, CN II-XII intact Psychiatric exam: Present: normal affect, normal mood Skin exam: Present: warm, dry, intact, normal color. Absent: rash Course Vital Signs 07/08/21 07/08/21 07/08/21 19:12 20:38 21:29 Temperature 100.3 F H 101.4 F H Pulse Rate 94 80 Respiratory 20 18 Rate Blood Pressure 135/69 153/87 O2 Sat by Pulse 96 96 Oximetry EKG Findings - EKG Comments: EKG Findings:: EKG obtained at 1920 shows normal sinus rhythm with a ventricular rate of 91, TN interval 162, QRS duration 70, QT 342, QTc 420. No evidence of ST elevation or depression. Medical Decision Making - Medical Decision Making 81-year-old male patient presents to the emergency department today for evaluation of generalized weakness, fatigue, shortness of breath. Did have 2 stents placed in his LAD on 07/01/2021. Physical examination is unremarkable. Lungs are clear to auscultation. Abdomen soft and nontender. Labs reviewed and did reveal normal white blood cell count, hemoglobin 11.0, troponin 0.472, urinalysis shows no infection. Tested negative for COVID-19. He did have elevated temperature upon arrival to 101.4F. Was given Tylenol. He'll be admitted to the hospital for further evaluation by cardiology. He is agreeable this plan. - Lab Data Result diagrams: 07/08/21 19:52 07/08/21 19:52 Lab Results 07/08/21 07/08/21 07/08/21 Range/Units 19:52 19:52 19:52 WBC 8.9 (3.8-10.6) k/uL RBC 3.26 L (4.30-5.90) m/uL Hgb 11.0 L (13.0-17.5) gm/dL Hct 31.9 L (39.0-53.0) % MCV 97.6 (80.0-100.0) fL MCH 33.7 (25.0-35.0) pg MCHC 34.5 (31.0-37.0) g/dL RDW 13.4 (11.5-15.5) % Plt Count 243 (150-450) k/uL MPV 8.0 Neutrophils % 68 % Lymphocytes % 16 % Monocytes % 10 % Eosinophils % 4 % Basophils % 1 % Neutrophils # 6.0 (1.3-7.7) k/uL Lymphocytes # 1.4 (1.0-4.8) k/uL Monocytes # 0.9 (0-1.0) k/uL Eosinophils # 0.3 (0-0.7) k/uL Basophils # 0.0 (0-0.2) k/uL Poikilocytosis Slight PT 10.6 (9.0-12.0) sec INR 1.0 (<1.2) APTT 23.1 (22.0-30.0) sec Sodium (137-145) mmol/L Potassium (3.5-5.1) mmol/L Chloride (98-107) mmol/L Carbon Dioxide (22-30) mmol/L Anion Gap mmol/L BUN (9-20) mg/dL Creatinine (0.66-1.25) mg/dL Est GFR (CKD-EPI)AfAm (>60 ml/min/1.73 sqM) Est GFR (CKD-EPI)NonAf (>60 ml/min/1.73 sqM) Glucose (74-99) mg/dL Plasma Lactic Acid Vikas (0.7-2.0) mmol/L Calcium (8.4-10.2) mg/dL Total Bilirubin (0.2-1.3) mg/dL AST (17-59) U/L ALT (4-49) U/L Alkaline Phosphatase (38-126) U/L Troponin I (0.000-0.034) ng/mL Total Protein (6.3-8.2) g/dL Albumin (3.5-5.0) g/dL Urine Color Yellow Urine Appearance Clear (Clear) Urine pH 5.5 (5.0-8.0) Ur Specific [place] 1.022 (1.001-1.035) Urine Protein Trace H (Negative) Urine Glucose (UA) Negative (Negative) Urine Ketones Negative (Negative) Urine Blood Moderate H (Negative) Urine Nitrite Negative (Negative) Urine Bilirubin Negative (Negative) Urine Urobilinogen 2.0 (<2.0) mg/dL Ur Leukocyte Esterase Negative (Negative) Urine RBC 3 (0-5) /hpf Urine WBC 3 (0-5) /hpf Ur Squamous Epith Cells <1 (0-4) /hpf Amorphous Sediment Rare H (None) /hpf Urine Mucus Few H (None) /hpf Coronavirus (PCR) (Not Detectd) 07/08/21 07/08/21 07/08/21 Range/Units 19:52 19:52 19:52 WBC (3.8-10.6) k/uL RBC (4.30-5.90) m/uL Hgb (13.0-17.5) gm/dL Hct (39.0-53.0) % MCV (80.0-100.0) fL MCH (25.0-35.0) pg MCHC (31.0-37.0) g/dL RDW (11.5-15.5) % Plt Count (150-450) k/uL MPV Neutrophils % % Lymphocytes % % Monocytes % % Eosinophils % % Basophils % % Neutrophils # (1.3-7.7) k/uL Lymphocytes # (1.0-4.8) k/uL Monocytes # (0-1.0) k/uL Eosinophils # (0-0.7) k/uL Basophils # (0-0.2) k/uL Poikilocytosis PT (9.0-12.0) sec INR (<1.2) APTT (22.0-30.0) sec Sodium 132 L (137-145) mmol/L Potassium 4.3 (3.5-5.1) mmol/L Chloride 97 L (98-107) mmol/L Carbon Dioxide 21 L (22-30) mmol/L Anion Gap 14 mmol/L BUN 17 (9-20) mg/dL Creatinine 0.90 (0.66-1.25) mg/dL Est GFR (CKD-EPI)AfAm >90 (>60 ml/min/1.73 sqM) Est GFR (CKD-EPI)NonAf 79 (>60 ml/min/1.73 sqM) Glucose 138 H (74-99) mg/dL Plasma Lactic Acid Vikas 1.4 (0.7-2.0) mmol/L Calcium 8.8 (8.4-10.2) mg/dL Total Bilirubin 0.5 (0.2-1.3) mg/dL AST 30 (17-59) U/L ALT 36 (4-49) U/L Alkaline Phosphatase 57 (38-126) U/L Troponin I (0.000-0.034) ng/mL Total Protein 6.8 (6.3-8.2) g/dL Albumin 4.0 (3.5-5.0) g/dL Urine Color Urine Appearance (Clear) Urine pH (5.0-8.0) Ur Specific [place] (1.001-1.035) Urine Protein (Negative) Urine Glucose (UA) (Negative) Urine Ketones (Negative) Urine Blood (Negative) Urine Nitrite (Negative) Urine Bilirubin (Negative) Urine Urobilinogen (<2.0) mg/dL Ur Leukocyte Esterase (Negative) Urine RBC (0-5) /hpf Urine WBC (0-5) /hpf Ur Squamous Epith Cells (0-4) /hpf Amorphous Sediment (None) /hpf Urine Mucus (None) /hpf Coronavirus (PCR) Not Detected (Not Detectd) 07/08/21 Range/Units 19:52 WBC (3.8-10.6) k/uL RBC (4.30-5.90) m/uL Hgb (13.0-17.5) gm/dL Hct (39.0-53.0) % MCV (80.0-100.0) fL MCH (25.0-35.0) pg MCHC (31.0-37.0) g/dL RDW (11.5-15.5) % Plt Count (150-450) k/uL MPV Neutrophils % % Lymphocytes % % Monocytes % % Eosinophils % % Basophils % % Neutrophils # (1.3-7.7) k/uL Lymphocytes # (1.0-4.8) k/uL Monocytes # (0-1.0) k/uL Eosinophils # (0-0.7) k/uL Basophils # (0-0.2) k/uL Poikilocytosis PT (9.0-12.0) sec INR (<1.2) APTT (22.0-30.0) sec Sodium (137-145) mmol/L Potassium (3.5-5.1) mmol/L Chloride (98-107) mmol/L Carbon Dioxide (22-30) mmol/L Anion Gap mmol/L BUN (9-20) mg/dL Creatinine (0.66-1.25) mg/dL Est GFR (CKD-EPI)AfAm (>60 ml/min/1.73 sqM) Est GFR (CKD-EPI)NonAf (>60 ml/min/1.73 sqM) Glucose (74-99) mg/dL Plasma Lactic Acid Vikas (0.7-2.0) mmol/L Calcium (8.4-10.2) mg/dL Total Bilirubin (0.2-1.3) mg/dL AST (17-59) U/L ALT (4-49) U/L Alkaline Phosphatase (38-126) U/L Troponin I 0.472 H* (0.000-0.034) ng/mL Total Protein (6.3-8.2) g/dL Albumin (3.5-5.0) g/dL Urine Color Urine Appearance (Clear) Urine pH (5.0-8.0) Ur Specific [place] (1.001-1.035) Urine Protein (Negative) Urine Glucose (UA) (Negative) Urine Ketones (Negative) Urine Blood (Negative) Urine Nitrite (Negative) Urine Bilirubin (Negative) Urine Urobilinogen (<2.0) mg/dL Ur Leukocyte Esterase (Negative) Urine RBC (0-5) /hpf Urine WBC (0-5) /hpf Ur Squamous Epith Cells (0-4) /hpf Amorphous Sediment (None) /hpf Urine Mucus (None) /hpf Coronavirus (PCR) (Not Detectd) - Radiology Data Radiology results: report reviewed, image reviewed Two-view x-ray of the chest is obtained. Report was reviewed in its entirety. Impression by Dr. Mccloud shows new small left pleural effusion compared to recent exam. Normal heart. Disposition Clinical Impression: NSTEMI (non-ST elevated myocardial infarction), Fever Disposition: ADMITTED IP TO THIS [facility] Condition: Serious Decision to Admit Reason: Admit from EC Decision Date: 07/08/21 Decision Time: 22:35
[2021-07-08 20:16] LABS: Basophils % (A) 1 %; Eosinophils # (A) 0.3 k/uL (0-0.7); Eosinophils % (A) 4 %; HCT 31.9 % (39.0-53.0); Lymphocytes # (A) 1.4 k/uL (1.0-4.8); Lymphocytes % (A) 16 %; MCH 33.7 pg (25.0-35.0); MCHC 34.5 g/dL (31.0-37.0); MCV 97.6 fL (80.0-100.0); Monocytes # (A) 0.9 k/uL (0-1.0); Monocytes % (A) 10 %; Neutrophils % (A) 68 %; Platelet Count 243 k/uL (150-450); Poikilocytosis Slight; RBC 3.26 m/uL (4.30-5.90); RDW 13.4 % (11.5-15.5); WBC 8.9 k/uL (3.8-10.6)
[2021-07-08 20:21] LABS: Partial Thromboplastin Time 23.1 sec (22.0-30.0); Prothrombin Time 10.6 sec (9.0-12.0)
[2021-07-08 20:24] LABS: ALT 36 U/L (4-49); AST 30 U/L (17-59); African American GFR (CKD) >90 (>60 ml/min/1.73 sqM); Alkaline Phosphatase 57 U/L (38-126); Anion Gap 14 mmol/L; Blood Urea Nitrogen 17 mg/dL (9-20); Calcium 8.8 mg/dL (8.4-10.2); Carbon Dioxide 21 mmol/L (22-30); Chloride 97 mmol/L (98-107); Glucose 138 mg/dL (74-99); Non-African American GFR(CKD) 79 (>60 ml/min/1.73 sqM); Potassium 4.3 mmol/L (3.5-5.1); Sodium 132 mmol/L (137-145); Total Bilirubin 0.5 mg/dL (0.2-1.3); Total Protein 6.8 g/dL (6.3-8.2)
[2021-07-08] MEDS: SODIUM CHLORIDE 0.9% 500 ML 500 ML IV SCH ×2 (20:27→20:28)
--- NOTE | 2021-07-08 20:39 | XR ---
EXAMINATION TYPE: XR chest 2V DATE OF EXAM: 07/08/2021 COMPARISON: 06/30/2021 HISTORY: Chest pain TECHNIQUE: 2 views FINDINGS: Heart and mediastinum are normal. Lungs are clear. There is slight blunting left costophren ic angle. There are chest leads. Thoracic aorta shows mild atheromatous change. IMPRESSION: There is a new small left pleural effusion compared to recent exam. Normal heart.
[2021-07-08 21:52] LABS: Amorphous Sediment,Urine Rare /hpf; Appearance,Urine Clear (Clear); Bilirubin,Urine Negative (Negative); Blood,Urine Moderate (Negative); Color,Urine Yellow; Glucose,Urine (UA) Negative (Negative); Ketones,Urine Negative (Negative); Leukocyte Esterase,Urine Negative (Negative); Mucus,Urine Few /hpf; Nitrite,Urine Negative (Negative); PH, Urine 5.5 (5.0-8.0); Protein,Urine Trace (Negative); RBC,Urine 3 /hpf (0-5); Specific Gravity,Urine 1.022 (1.001-1.035); Squamous Epithelial Cell,Urine <1 /hpf (0-4); WBC,Urine 3 /hpf (0-5)
[2021-07-08] MEDS ORDERED: NALOXONE 0.4 MG/ML 1 ML VIAL IV PRN (22:30)
[2021-07-08] MEDS ORDERED: ASPIRIN 325 MG TAB PO STA (22:58)
[2021-07-09] MEDS ORDERED: PANTOPRAZOLE 40 MG TABLET PO SCH (07:30)
[2021-07-09 08:35] LABS: Basophils % (A) 0 %; Eosinophils # (A) 0.3 k/uL (0-0.7); Eosinophils % (A) 4 %; HCT 31.2 % (39.0-53.0); HGB 10.8 gm/dL (13.0-17.5); Lymphocytes # (A) 0.9 k/uL (1.0-4.8); Lymphocytes % (A) 13 %; MCH 33.4 pg (25.0-35.0); MCHC 34.7 g/dL (31.0-37.0); MCV 96.3 fL (80.0-100.0); Mean Platelet Volume 7.5; Monocytes # (A) 0.5 k/uL (0-1.0); Monocytes % (A) 7 %; Neutrophils % (A) 72 %; Platelet Count 216 k/uL (150-450); RBC 3.24 m/uL (4.30-5.90); RDW 12.4 % (11.5-15.5)
[2021-07-09] MEDS ORDERED: ASPIRIN 325 MG TAB PO SCH (09:00)
[2021-07-09] MEDS ORDERED: ASPIRIN 81 MG PO SCH (09:00)
[2021-07-09] MEDS ORDERED: METOPROLOL TARTRATE 12.5 MG TAB PO SCH (09:00)
[2021-07-09] MEDS ORDERED: METOPROLOL TARTRATE 25 MG TAB PO SCH (09:00)
[2021-07-09] MEDS ORDERED: ATORVASTATIN 80 MG TAB PO SCH (09:00)
[2021-07-09] MEDS ORDERED: CLOPIDOGREL 75 MG TAB PO SCH (09:00)
--- NOTE | 2021-07-09 10:29 | P.CRDCN ---
History of Present Illness Consult date: 07/09/21 History of present illness: HISTORY OF PRESENT ILLNESS: This is a 81-year-old male with a past medical history significant for coronary artery disease with previous CABG 2 many years ago, hypertension, and TIA. Patient used to follow with Dr. Nayak many years ago but has an appointment scheduled in the office to establish care with Dr. Elias and he was seen by Dr. Elias during a recent hospitalization. Patient was hospitalized earlier this month and underwent cardiac catheterization on 07/01/2021 with PCI to the [place] mid LAD with 2 drug-eluting stents. Patient was discharged home in stable condition on 07/03/2021. We have been asked to see the patient in consultation for elevated troponins. Patient examined at the bedside. Patient states since been discharged from hospital he has been very weak and tired. He states he is usually very active and walks a few miles a day. He states he has been napping most of the day since being discharged home. He also reports shortness of breath since being discharged from the hospital. He states he has 3 daughters who were concerned about him and wanted him to come to the hospital for further evaluation. The patient denies any chest pain or pressure. This morning he denies any shortness of breath. He states that he feels well and is wanting to go home today. It is noted that the patient had a fever upon presentation to the hospital of 101.4. The patient is afebrile this morning. His vital signs are stable. EKG reveals sinus mechanism with no signs of acute ischemia Chest xray there is a new small left pleural effusion compared to old exam. Normal heart. Laboratory data: WBC 7.0. Hemoglobin 10.8. Platelet count 216. Sodium 132. Potassium 4.3. BUN 17. Creatinine 0.90. Lactic acid 1.4. Troponin 0.472. 0.501. 0.447. Current home cardiac medications include Norvasc 5 mg at night, metoprolol tartrate 37.5 mg twice a day, losartan 50 mg daily, Plavix 75 mg daily, atorvastatin 80 mg daily, and aspirin 81 mg daily Most recent echocardiogram obtained in 07/03/2021 revealed ejection fraction 55- 60%. Mild tricuspid regurgitation. Moderate aortic valve sclerosis. REVIEW OF SYSTEMS: At the time of my exam: CONSTITUTIONAL: Denies fever or chills. HEENT: Denies blurred vision, vision changes, or eye pain. Denies hemoptysis CARDIOVASCULAR: Denies chest pain. Denies orthopnea. Denies PND. Denies palpitations RESPIRATORY: Denies shortness of breath. GASTROINTESTINAL: Denies abdominal pain. Denies nausea or vomiting. HEMATOLOGIC: Denies bleeding disorders. GENITOURINARY: Denies any blood in urine. SKIN: Denies pruitis. Denies rash. PHYSICAL EXAM: VITAL SIGNS: Reviewed. GENERAL: Well-developed in no acute distress. HEENT: Head is normocephalic. Pupils are equal, round. Sclerae anicteric. Mucous membranes of the mouth are moist. Neck supple. No JVD or thyromegaly LUNGS: Respirations even and unlabored. Lungs essentially clear to auscultation bilaterally. HEART: Regular rate and rhythm. S1 and S2 heard. ABDOMEN: Soft. Nondistended. Nontender. EXTREMITIES: Normal range of motion. No clubbing or cyanosis. Peripheral pulses intact. No lower extremity edema NEUROLOGIC: Awake and alert. Oriented x 3. ASSESSMENT: Fever Generalized weakness Coronary artery disease with previous CABG 2 and recent PCI to the LAD with 2 stents Abnormal troponins, may be secondary to recent NSTEMI with PCI, no evidence of ACS Hypertension Hyperlipidemia History of TIA PLAN: Resume home cardiac medications Patient with complaints of significant fatigue. Will decrease metoprolol to 25mg BID Patient is stable from a cardiac standpoint Discharge per medicine Follow up outpatient with Dr. Elias Nurse practitioner note has been reviewed by physician. Signing provider agrees with the documented findings, assessment, and plan of care. Past Medical History Past Medical History: CVA/TIA, GERD/Reflux Additional Past Medical History / Comment(s): PRE CA LESIONS REMOVED IN PAST, LESIONS REMOVED FROM BACK 01/12/16, TIA 2014, STATES NO RESIDUAL EFFECTS History of Any Multi-Drug Resistant Organisms: None Reported Past Surgical History: Cholecystectomy, Coronary Bypass/CABG, Heart Catheterization With Stent Additional Past Surgical History / Comment(s): CABG X2 Past Anesthesia/Blood Transfusion Reactions: No Reported Reaction Date of Last Stent Placement:: 07/01/2021 Past Psychological History: No Psychological Hx Reported Smoking Status: Never smoker Past Alcohol Use History: Occasional Additional Past Alcohol Use History / Comment(s): STATES SMOKED FROM TEENS UNTIL AGE 29, ABOUT A PACK A DAY Past Drug Use History: None Reported - Past Family History Mother Family Medical History: Cancer Additional Family Medical History / Comment(s): COLON Father Family Medical History: Coronary Artery Disease (CAD) Medications and Allergies Home Medications Medication Instructions Recorded Confirmed Type Aspirin [Adult Low Dose Aspirin EC] 81 mg PO DAILY 01/12/16 07/08/21 History Pantoprazole [Protonix] 40 mg PO DAILY 01/12/16 07/08/21 History amLODIPine [Norvasc] 5 mg PO HS 07/01/21 07/08/21 History Atorvastatin [Lipitor] 80 mg PO DAILY 30 Days #30 tab 07/03/21 07/08/21 Rx Clopidogrel [Plavix] 75 mg PO DAILY 30 Days #30 tab 07/03/21 07/08/21 Rx Losartan [Cozaar] 50 mg PO HS 30 Days #30 tab 07/03/21 07/08/21 Rx Metoprolol Tartrate [Lopressor] 12.5 mg PO BID 30 Days #60 tab 07/03/21 07/08/21 Rx Metoprolol Tartrate [Lopressor] 25 mg PO BID 30 Days #60 tab 07/03/21 07/08/21 Rx Allergies Allergy/AdvReac Type Severity Reaction Status Date / Time No Known Allergies Allergy Verified 07/08/21 21:37 Physical Exam Vitals: Vital Signs Temp Pulse Pulse Resp BP BP Pulse Ox 07/09/21 07:37 99 07/09/21 04:00 98.3 F 80 16 110/57 99 07/09/21 00:00 97.9 F 85 16 113/62 97 07/08/21 23:33 97.9 F 80 16 124/64 98 07/08/21 22:59 98.4 F 07/08/21 21:29 80 18 153/87 96 07/08/21 20:38 101.4 F H 07/08/21 19:12 100.3 F H 94 20 135/69 96 Intake and Output 07/08/21 07/09/21 07/09/21 22:59 06:59 14:59 Other: Voiding Method Urinal # Voids 2 Weight 68.039 kg 73.1 kg Results 07/09/21 07:53 07/08/21 19:52 Cardiac Enzymes 07/08/21 07/08/21 07/08/21 Range/Units 19:52 19:52 23:27 AST 30 (17-59) U/L Troponin I 0.472 H* 0.501 H* (0.000-0.034) ng/mL 07/09/21 Range/Units 01:33 AST (17-59) U/L Troponin I 0.447 H* (0.000-0.034) ng/mL Coagulation 07/08/21 Range/Units 19:52 PT 10.6 (9.0-12.0) sec APTT 23.1 (22.0-30.0) sec CBC 07/08/21 07/09/21 Range/Units 19:52 07:53 WBC 8.9 7.0 (3.8-10.6) k/uL RBC 3.26 L 3.24 L (4.30-5.90) m/uL Hgb 11.0 L 10.8 L (13.0-17.5) gm/dL Hct 31.9 L 31.2 L (39.0-53.0) % Plt Count 243 216 (150-450) k/uL Comprehensive Metabolic Panel 07/08/21 Range/Units 19:52 Sodium 132 L (137-145) mmol/L Potassium 4.3 (3.5-5.1) mmol/L Chloride 97 L (98-107) mmol/L Carbon Dioxide 21 L (22-30) mmol/L BUN 17 (9-20) mg/dL Creatinine 0.90 (0.66-1.25) mg/dL Glucose 138 H (74-99) mg/dL Calcium 8.8 (8.4-10.2) mg/dL AST 30 (17-59) U/L ALT 36 (4-49) U/L Alkaline Phosphatase 57 (38-126) U/L Total Protein 6.8 (6.3-8.2) g/dL Albumin 4.0 (3.5-5.0) g/dL Current Medications Generic Name Dose Route Start Last Admin Trade Name Freq PRN Reason Stop Dose Admin Amlodipine Besylate 5 mg 07/09/21 21:00 Amlodipine 5 Mg Tab PO HS GEOVANY Aspirin 81 mg 07/10/21 09:00 Aspirin 81 Mg PO DAILY [facility] Atorvastatin Calcium 80 mg 07/09/21 09:00 07/09/21 08:23 Atorvastatin 80 Mg Tab PO 80 mg DAILY GEOVANY Administration Clopidogrel Bisulfate 75 mg 07/09/21 09:00 07/09/21 08:23 Clopidogrel 75 Mg Tab PO 75 mg DAILY GEOVANY Administration Losartan Potassium 50 mg 07/09/21 21:00 Losartan 50 Mg Tab PO HS GEOVANY Metoprolol Tartrate 25 mg 07/09/21 09:00 07/09/21 08:34 Metoprolol Tartrate 25 Mg Tab PO 25 mg BID GEOVANY Administration Naloxone HCl 0.2 mg 07/08/21 22:30 Naloxone 0.4 Mg/Ml 1 Ml Vial IV Q2M PRN Opioid Reversal Pantoprazole Sodium 40 mg 07/09/21 07:30 Pantoprazole 40 Mg Tablet PO [id number] GEOVANY Intake and Output 07/08/21 07/09/21 07/09/21 22:59 06:59 14:59 Other: Voiding Method Urinal # Voids 2 Weight 68.039 kg 73.1 kg 07/09/21 07:53 07/08/21 19:52
[2021-07-09 10:47] VITALS: RESP 18
[2021-07-09 11:58] VITALS: BP 138/65; PULSE 78; TEMP 98
--- NOTE | 2021-07-09 16:40 | P.HPIM ---
History of Present Illness H&P Date: 07/09/21 Chief Complaint: Weakness and shortness of breath Patient is a 81-year-old male with a known history of CVA/TIA, coronary artery bypass graft 2 vessel, presents to ER with complaints of shortness of breath, generalized weakness and fatigue. Patient was recently hospitalized and underwent cardiac catheterization on 07/01/2021 with PCI to the [place] mid LAD with 2 drug eluting stents. Patient was discharged home in stable condition on 07/03/2021. Patient says that since discharge has been feeling very weak and fatigued. Patient usually very active and walks she miles a day. Patient has been napping most of the day she is being discharged. He also reports shortness of breath. Patient's daughter who were concerned about him and wanted him come to the hospital for evaluation. Otherwise patient denied any complaints of chest pain or pressure or heaviness. No commerce of shortness of breath. Patient says that he was also having fever at home. T-max was 101.4 on admission. Patient has been afebrile since then. EKG showed normal sinus rhythm Chest x-ray showed new small left pleural effusion compared to old exam. Normal heart. Laboratory data showed WBC 8.9 hemoglobin 9.0 and platelets 243 Sodium 132 potassium 4.397 bicarb is 21 BUN 17 and creatinine 0.9 Troponin 472, 0.501 and 0.447 Urinalysis is negative for infection COVID-19 admitted to Pro-calcitonin level is 0.07 Review of Systems Constitutional: Patient denies any fever or chills . No generalized weakness or weight loss. Abdomen: Patient denied nausea vomiting and diarrhea and abdominal pain. Cardiovascular: Patient denies any chest pain or short of breath no palpitations. Respiratory: patient denied any cough is from production. No shortness of breath Neurologic: Patient denied any numbness or tingling headache. Musculoskeletal: Patient denies any complaints of joint swelling or deformity. Skin: Negative Psychiatric: Negative Endocrine: No heat or cold intolerance. No recent weight gain. Genitourinary: No dysuria or hematuria. All other 14 point ROS negative except the above Past Medical History Past Medical History: CVA/TIA, GERD/Reflux Additional Past Medical History / Comment(s): PRE CA LESIONS REMOVED IN PAST, LESIONS REMOVED FROM BACK 01/12/16, 2014, STATES NO RESIDUAL EFFECTS History of Any Multi-Drug Resistant Organisms: None Reported Past Surgical History: Cholecystectomy, Coronary Bypass/CABG, Heart Catheterization With Stent Additional Past Surgical History / Comment(s): CABG X2 Past Anesthesia/Blood Transfusion Reactions: No Reported Reaction Date of Last Stent Placement:: 07/01/2021 Past Psychological History: No Psychological Hx Reported Smoking Status: Never smoker Past Alcohol Use History: Occasional Additional Past Alcohol Use History / Comment(s): STATES SMOKED FROM TEENS UNTIL AGE 29, ABOUT A PACK A DAY Past Drug Use History: None Reported - Past Family History Mother Family Medical History: Cancer Additional Family Medical History / Comment(s): COLON Father Family Medical History: Coronary Artery Disease (CAD) Medications and Allergies Home Medications Medication Instructions Recorded Confirmed Type Aspirin [Adult Low Dose Aspirin EC] 81 mg PO DAILY 01/12/16 07/08/21 History Pantoprazole [Protonix] 40 mg PO DAILY 01/12/16 07/08/21 History amLODIPine [Norvasc] 5 mg PO HS 07/01/21 07/08/21 History Atorvastatin [Lipitor] 80 mg PO DAILY 30 Days #30 tab 07/03/21 07/08/21 Rx Clopidogrel [Plavix] 75 mg PO DAILY 30 Days #30 tab 07/03/21 07/08/21 Rx Losartan [Cozaar] 50 mg PO HS 30 Days #30 tab 07/03/21 07/08/21 Rx Metoprolol Tartrate [Lopressor] 25 mg PO BID 30 Days #60 tab 07/03/21 07/08/21 Rx Allergies Allergy/AdvReac Type Severity Reaction Status Date / Time No Known Allergies Allergy Verified 07/08/21 21:37 Physical Exam Vitals: Vital Signs Temp Pulse Pulse Resp BP BP Pulse Ox 07/09/21 07:37 99 07/09/21 04:00 98.3 F 80 16 110/57 99 07/09/21 00:00 97.9 F 85 16 113/62 97 07/08/21 23:33 97.9 F 80 16 124/64 98 07/08/21 22:59 98.4 F 07/08/21 21:29 80 18 153/87 96 07/08/21 20:38 101.4 F H 07/08/21 19:12 100.3 F H 94 20 135/69 96 Intake and Output 07/08/21 07/09/21 07/09/21 22:59 06:59 14:59 Other: Voiding Method Urinal # Voids 2 Weight 68.039 kg 73.1 kg PHYSICAL EXAMINATION: Patient is lying in the bed comfortably, no acute distress, awake alert and oriented.. HEENT: Normocephalic. Neck is supple. Pupils reactive. Nostrils clear. Oral cavity is moist. Neck reveals no JVD, carotid bruits, or thyromegaly. CHEST EXAMINATION: Trachea is central. Symmetrical expansion. Lung andrade clear to auscultation and percussion. CARDIAC: Normal S1, S2 with no gallops. No murmurs ABDOMEN: Soft. Bowel sounds normal. No organomegaly. No abdominal bruits. Extremities: reveal no edema. No clubbing or cyanosis Neurologically awake, alert, oriented x3 with well-coordinated movements. No focal deficits noted Skin: No rash or skin lesions. Psychiatric: Coperative. Nonsuicidal Musculoskeletal: No joint swelling or deformity. Normal range of motion. Results CBC & Chem 7: 07/09/21 07:53 07/08/21 19:52 Labs: Abnormal Lab Results - Last 24 Hours (Table) 07/08/21 07/08/21 07/08/21 Range/Units 19:52 19:52 19:52 RBC 3.26 L (4.30-5.90) m/uL Hgb 11.0 L (13.0-17.5) gm/dL Hct 31.9 L (39.0-53.0) % Lymphocytes # (1.0-4.8) k/uL Sodium 132 L (137-145) mmol/L Chloride 97 L (98-107) mmol/L Carbon Dioxide 21 L (22-30) mmol/L Glucose 138 H (74-99) mg/dL Troponin I (0.000-0.034) ng/mL Urine Protein Trace H (Negative) Urine Blood Moderate H (Negative) Amorphous Sediment Rare H (None) /hpf Urine Mucus Few H (None) /hpf 07/08/21 07/08/21 07/09/21 Range/Units 19:52 23:27 01:33 RBC (4.30-5.90) m/uL Hgb (13.0-17.5) gm/dL Hct (39.0-53.0) % Lymphocytes # (1.0-4.8) k/uL Sodium (137-145) mmol/L Chloride (98-107) mmol/L Carbon Dioxide (22-30) mmol/L Glucose (74-99) mg/dL Troponin I 0.472 H* 0.501 H* 0.447 H* (0.000-0.034) ng/mL Urine Protein (Negative) Urine Blood (Negative) Amorphous Sediment (None) /hpf Urine Mucus (None) /hpf 07/09/21 Range/Units 07:53 RBC 3.24 L (4.30-5.90) m/uL Hgb 10.8 L (13.0-17.5) gm/dL Hct 31.2 L (39.0-53.0) % Lymphocytes # 0.9 L (1.0-4.8) k/uL Sodium (137-145) mmol/L Chloride (98-107) mmol/L Carbon Dioxide (22-30) mmol/L Glucose (74-99) mg/dL Troponin I (0.000-0.034) ng/mL Urine Protein (Negative) Urine Blood (Negative) Amorphous Sediment (None) /hpf Urine Mucus (None) /hpf Thrombosis Risk Factor Assmnt - DVT/VTE Prophylaxis DVT/VTE Prophylaxis: Pharmacologic Prophylaxis ordered - Choose All That Apply Any of the Below Risk Factors Present?: Yes Each Factor Represents 1 point: Obesity (BMI >25) Other Risk Factors: Yes Each Risk Factor Represents 3 Points: Age 75 years or older Thrombosis Risk Factor Assessment Total Risk Factor Score: 4 Thrombosis Risk Factor Assessment Level: Moderate Risk Assessment and Plan Assessment: Generalized weakness and fatigue and tiredness Fever likely atelectasis. No evidence of infection. Resolving now. Status post cardiac catheterization and stent placement on 07/01/2021 Coronary artery disease with history of CABG History of CVA/TIA GERD Hyperlipidemia Hypertension Plan: Next and patient was started back on home medications. Metoprolol dose decreased to 25 mg twice a day. Patient says that he feels better now. Fever has resolved. Pro-calcitonin level is not elevated. Currently antibiotics on hold. Continue with telemetry monitoring. Cardiology was consulted for evaluation. Time with Patient: Greater than 30
[2021-07-09] MEDS ORDERED: LOSARTAN 50 MG TAB PO SCH (21:00)
[2021-07-09] MEDS ORDERED: amLODIPine 5 MG TAB PO SCH (21:00)
[2021-07-10] MEDS ORDERED: ASPIRIN 81 MG PO SCH (09:00)
--- NOTE | 2021-08-01 13:22 | P.DS ---
Providers Date of admission: 07/08/21 22:16 Expected date of discharge: 07/09/21 Attending physician: Stacia Reed Consults: 07/08/21 22:30 Consult Physician Routine Consulting Provider: [facility] Consult Reason/Comments: elevated trop Do you want consulting provider notified?: Yes Primary care physician: Stated None Hospital Course: Generalized weakness and fatigue and tiredness Fever likely atelectasis. No evidence of infection. Resolving now. Status post cardiac catheterization and stent placement on 07/01/2021 Coronary artery disease with history of CABG History of CVA/TIA GERD Hyperlipidemia Hypertension Patient is a 81-year-old male with a known history of CVA/TIA, coronary artery bypass graft 2 vessel, presents to ER with complaints of shortness of breath, generalized weakness and fatigue. Patient was recently hospitalized and underwent cardiac catheterization on 07/01/2021 with PCI to the [place] mid LAD with 2 drug eluting stents. Patient was discharged home in stable condition on 07/03/2021. Patient says that since discharge has been feeling very weak and fatigued. Patient usually very active and walks she miles a day. Patient has been napping most of the day she is being discharged. He also reports shortness of breath. Patient's daughter who were concerned about him and wanted him come to the hospital for evaluation. Otherwise patient denied any complaints of chest pain or pressure or heaviness. No commerce of shortness of breath. Patient says that he was also having fever at home. T-max was 101.4 on admission. Patient has been afebrile since then. EKG showed normal sinus rhythm Chest x-ray showed new small left pleural effusion compared to old exam. Normal heart. Laboratory data showed WBC 8.9 hemoglobin 9.0 and platelets 243 Sodium 132 potassium 4.397 bicarb is 21 BUN 17 and creatinine 0.9 Troponin 472, 0.501 and 0.447 Urinalysis is negative for infection COVID-19 admitted to Pro-calcitonin level is 0.07 patient was started back on home medications. Metoprolol dose decreased to 25 mg twice a day. Patient says that he feels better now. Fever has resolved. Pro-calcitonin level is not elevated. Currently antibiotics on hold. Continue with telemetry monitoring. Cardiology was consulted for evaluation. PHYSICAL EXAMINATION: Patient is lying in the bed comfortably, no acute distress, awake alert and oriented.. HEENT: Normocephalic. Neck is supple. Pupils reactive. Nostrils clear. Oral cavity is moist. Neck reveals no JVD, carotid bruits, or thyromegaly. CHEST EXAMINATION: Trachea is central. Symmetrical expansion. Lung andrade clear to auscultation and percussion. CARDIAC: Normal S1, S2 with no gallops. No murmurs ABDOMEN: Soft. Bowel sounds normal. No organomegaly. No abdominal bruits. Extremities: reveal no edema. No clubbing or cyanosis Neurologically awake, alert, oriented x3 with well-coordinated movements. No focal deficits noted Skin: No rash or skin lesions. Psychiatric: Coperative. Nonsuicidal Musculoskeletal: No joint swelling or deformity. Normal range of motion. Patient Condition at Discharge: Serious Plan - Discharge Summary Discharge Rx Participant: No New Discharge Prescriptions: Continue Pantoprazole [Protonix] 40 mg PO DAILY Aspirin [Adult Low Dose Aspirin EC] 81 mg PO DAILY Losartan [Cozaar] 50 mg PO HS 30 Days #30 tab Atorvastatin [Lipitor] 80 mg PO DAILY 30 Days #30 tab Metoprolol Tartrate [Lopressor] 25 mg PO BID 30 Days #60 tab Clopidogrel [Plavix] 75 mg PO DAILY 30 Days #30 tab amLODIPine [Norvasc] 5 mg PO HS Discontinued Metoprolol Tartrate [Lopressor] 12.5 mg PO BID 30 Days #60 tab Discharge Medication List Aspirin [Adult Low Dose Aspirin EC] 81 mg PO DAILY 01/12/16 [History] Pantoprazole [Protonix] 40 mg PO DAILY 01/12/16 [History] amLODIPine [Norvasc] 5 mg PO HS 07/01/21 [History] Atorvastatin [Lipitor] 80 mg PO DAILY 30 Days #30 tab 07/03/21 [Rx] Clopidogrel [Plavix] 75 mg PO DAILY 30 Days #30 tab 07/03/21 [Rx] Losartan [Cozaar] 50 mg PO HS 30 Days #30 tab 07/03/21 [Rx] Metoprolol Tartrate [Lopressor] 25 mg PO BID 30 Days #60 tab 07/03/21 [Rx] Follow up Appointment(s)/Referral(s): Nonstaff,Physician [REFERRING] - 1-2 days (Pt to make own appt with PCP, office closed today) Discharge Disposition: HOME SELF-CARE
--- NOTE | 2021-08-01 13:24 | P.DS ---
Providers Date of admission: 07/08/21 22:16 Expected date of discharge: 07/09/21 Attending physician: Stacia Reed Consults: 07/08/21 22:30 Consult Physician Routine Consulting Provider: [facility] Consult Reason/Comments: elevated trop Do you want consulting provider notified?: Yes Primary care physician: Stated None Hospital Course: Discharge diagnosis Generalized weakness and fatigue and tiredness Fever likely atelectasis. No evidence of infection. Resolving now. Status post cardiac catheterization and stent placement on 07/01/2021 Coronary artery disease with history of CABG History of CVA/TIA GERD Hyperlipidemia Hypertension Hospital course Patient is a 81-year-old male with a known history of CVA/TIA, coronary artery bypass graft 2 vessel, presents to ER with complaints of shortness of breath, generalized weakness and fatigue. Patient was recently hospitalized and underwent cardiac catheterization on 07/01/2021 with PCI to the [place] mid LAD with 2 drug eluting stents. Patient was discharged home in stable condition on 07/03/2021. Patient says that since discharge has been feeling very weak and fatigued. Patient usually very active and walks she miles a day. Patient has been napping most of the day she is being discharged. He also reports shortness of breath. Patient's daughter who were concerned about him and wanted him come to the hospital for evaluation. Otherwise patient denied any complaints of chest pain or pressure or heaviness. No commerce of shortness of breath. Patient says that he was also having fever at home. T-max was 101.4 on admission. Patient has been afebrile since then. EKG showed normal sinus rhythm Chest x-ray showed new small left pleural effusion compared to old exam. Normal heart. Laboratory data showed WBC 8.9 hemoglobin 9.0 and platelets 243 Sodium 132 potassium 4.397 bicarb is 21 BUN 17 and creatinine 0.9 Troponin 472, 0.501 and 0.447 Urinalysis is negative for infection COVID-19 admitted to Pro-calcitonin level is 0.07 patient was started back on home medications. Due to generalized fatigue metoprolol dose has been decreased. Cardiology has seen the patient. No arrhythmia noted. Patient has been afebrile since admission. Procalcitonin level is not elevated and antibiotics were not started at this time. Patient is stable to be discharged home. PHYSICAL EXAMINATION: Patient is lying in the bed comfortably, no acute distress, awake alert and oriented.. HEENT: Normocephalic. Neck is supple. Pupils reactive. Nostrils clear. Oral cavity is moist. Neck reveals no JVD, carotid bruits, or thyromegaly. CHEST EXAMINATION: Trachea is central. Symmetrical expansion. Lung andrade clear to auscultation and percussion. CARDIAC: Normal S1, S2 with no gallops. No murmurs ABDOMEN: Soft. Bowel sounds normal. No organomegaly. No abdominal bruits. Extremities: reveal no edema. No clubbing or cyanosis Neurologically awake, alert, oriented x3 with well-coordinated movements. No focal deficits noted Skin: No rash or skin lesions. Psychiatric: Coperative. Nonsuicidal Musculoskeletal: No joint swelling or deformity. Normal range of motion. Discharge vitals reviewed. Patient Condition at Discharge: Stable Plan - Discharge Summary Discharge Rx Participant: No New Discharge Prescriptions: Continue Pantoprazole [Protonix] 40 mg PO DAILY Aspirin [Adult Low Dose Aspirin EC] 81 mg PO DAILY Losartan [Cozaar] 50 mg PO HS 30 Days #30 tab Atorvastatin [Lipitor] 80 mg PO DAILY 30 Days #30 tab Metoprolol Tartrate [Lopressor] 25 mg PO BID 30 Days #60 tab Clopidogrel [Plavix] 75 mg PO DAILY 30 Days #30 tab amLODIPine [Norvasc] 5 mg PO HS Discontinued Metoprolol Tartrate [Lopressor] 12.5 mg PO BID 30 Days #60 tab Discharge Medication List Aspirin [Adult Low Dose Aspirin EC] 81 mg PO DAILY 01/12/16 [History] Pantoprazole [Protonix] 40 mg PO DAILY 01/12/16 [History] amLODIPine [Norvasc] 5 mg PO HS 07/01/21 [History] Atorvastatin [Lipitor] 80 mg PO DAILY 30 Days #30 tab 07/03/21 [Rx] Clopidogrel [Plavix] 75 mg PO DAILY 30 Days #30 tab 07/03/21 [Rx] Losartan [Cozaar] 50 mg PO HS 30 Days #30 tab 07/03/21 [Rx] Metoprolol Tartrate [Lopressor] 25 mg PO BID 30 Days #60 tab 07/03/21 [Rx] Follow up Appointment(s)/Referral(s): Nonstaff,Physician [REFERRING] - 1-2 days (Pt to make own appt with PCP, office closed today) Discharge Disposition: HOME SELF-CARE
== END 2021-07-09 13:38 | disposition home or self-care (01) | DRG 205 ==
LOC: EC 19:07 → 3SCARD 22:16
PROVIDERS: ADMIT Internal Medicine; ATTEND Internal Medicine
DX: J98.11 Atelectasis (principal); I21.4 Non-ST elevation (NSTEMI) myocardial infarction; I25.10 Atherosclerotic heart disease of native coronary artery without angina pectoris; I10 Essential (primary) hypertension; E78.5 Hyperlipidemia, unspecified; K21.9 Gastro-esophageal reflux disease without esophagitis; I08.2 Rheumatic disorders of both aortic and tricuspid valves; R50.9 Fever, unspecified; Z20.822 Contact with and (suspected) exposure to COVID-19; Z79.02 Long term (current) use of antithrombotics/antiplatelets; Z79.82 Long term (current) use of aspirin; Z79.899 Other long term (current) drug therapy; Z82.49 Family history of ischemic heart disease and other diseases of the circulatory system; Z86.73 Personal history of transient ischemic attack (TIA), and cerebral infarction without residual deficits; Z95.1 Presence of aortocoronary bypass graft; Z98.61 Coronary angioplasty status; Z90.49 Acquired absence of other specified parts of digestive tract; Z98.890 Other specified postprocedural states; Z80.0 Family history of malignant neoplasm of digestive organs; Z87.891 Personal history of nicotine dependence
CPT/HCPCS: 36415; 71046; 80053; 81001; 83605; 84145; 84484; 85025; 85610; 85730; 87040; 87635; 93005; 96360; 96361; 99285

== ENCOUNTER 2022-04-01 17:16 | Emergency (ER) | payer MEDICARE ==
--- NOTE | 2022-04-01 18:40 | XR ---
EXAMINATION TYPE: XR chest 2V DATE OF EXAM: 04/01/2022 COMPARISON: 07/08/2021 HISTORY: Shortness of breath. TECHNIQUE: Frontal and lateral views of the chest are obtained. FINDINGS: There is no focal air space opacity, pleural effusion, or pneumothorax seen. The cardiac silhouette size is within normal limits. The osseous structures are intact. IMPRESSION: No acute cardiopulmonary process.
[2022-04-01 18:45] LABS: Basophils % (A) 1 %; Eosinophils # (A) 0.2 k/uL (0-0.7); Eosinophils % (A) 3 %; HCT 37.6 % (39.0-53.0); HGB 12.9 gm/dL (13.0-17.5); Lymphocytes # (A) 1.3 k/uL (1.0-4.8); Lymphocytes % (A) 27 %; MCH 33.2 pg (25.0-35.0); MCHC 34.2 g/dL (31.0-37.0); MCV 96.9 fL (80.0-100.0); Mean Platelet Volume 7.4; Monocytes # (A) 0.4 k/uL (0-1.0); Monocytes % (A) 8 %; Neutrophils # (A) 2.8 k/uL (1.3-7.7); Neutrophils % (A) 58 %; Platelet Count 202 k/uL (150-450); RBC 3.88 m/uL (4.30-5.90); RDW 12.7 % (11.5-15.5); WBC 4.8 k/uL (3.8-10.6)
[2022-04-01 18:56] LABS: Prothrombin Time 10.5 sec (9.0-12.0)
[2022-04-01 19:22] LABS: ALT 24 U/L (4-49); AST 22 U/L (17-59); African American GFR (CKD) >90 (>60 ml/min/1.73 sqM); Albumin 4.4 g/dL (3.5-5.0); Alkaline Phosphatase 57 U/L (38-126); Anion Gap 5 mmol/L; Blood Urea Nitrogen 22 mg/dL (9-20); Carbon Dioxide 29 mmol/L (22-30); Chloride 102 mmol/L (98-107); Glucose 128 mg/dL (74-99); Non-African American GFR(CKD) 79 (>60 ml/min/1.73 sqM); Potassium 4.3 mmol/L (3.5-5.1); Sodium 136 mmol/L (137-145); Total Bilirubin 0.4 mg/dL (0.2-1.3); Total Protein 7.3 g/dL (6.3-8.2)
--- NOTE | 2022-04-01 19:52 | CT ---
EXAM: CT brain wo con CLINICAL HISTORY: Dizziness. COMPARISON: None TECHNIQUE: Contiguous axial noncontrast images of the brain were obtained. Coronal and sagittal refor mats were generated and reviewed. Automated dose control was used for this exam. FINDINGS: There is no evidence for intracranial hemorrhage, mass effect or midline shift. There is mild white m atter disease and parenchymal volume loss. Ventricular size and configuration is within normal limits for degree of parenchymal volume. The paranasal sinuses are clear. The mastoid air cells are clear. No evidence for calvarial fracture. IMPRESSION: No acute intracranial abnormality.
--- NOTE | 2022-04-01 20:20 | CT ---
EXAMINATION TYPE: CT angio head neck DATE OF EXAM: 04/01/2022 HISTORY: Dizziness. COMPARISON: None available CT DLP: 489.9 mGycm. Automated Exposure Control for Dose Reduction was Utilized. TECHNIQUE: CTA scan of the head and neck is performed with IV Contrast, patient injected with 65ml m L of Isovue 370, axial images are obtained, coronal and sagittal reformatted images are reviewed. 3D reconstructed images are created on an independent workstation and reviewed. FINDINGS: There is mild atherosclerosis of the aortic arch. Otherwise normal three-vessel branching of the aort a. 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 No additional high-grade sten osis, dissection or aneurysm seen in the bilateral common carotid, left cervical internal carotid and bilateral vertebral arteries. There is demonstration of the right MCA by the [place] of [place]. Otherwise no evidence of high-grade stenosis, dissection or aneurysm in the intracranial internal carotid arteries, anterior, middle and posterior cerebral arteries as well as in the imaged vertebral and basilar arteries. The communicatin g arteries are unremarkable. 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 Remainder of the head/neck arteries are patent without significant stenosis. NASCET criteria was used in interpretation of this exam?
[2022-04-01 20:42] VITALS: BP 148/78; PULSE 77; RESP 22; TEMP 98
--- NOTE | 2022-04-01 20:52 | ED ---
General Adult HPI - General Chief complaint: Dizziness Stated complaint: Weakness/SOB Time Seen by Provider: 04/01/22 18:06 Source: patient Mode of arrival: ambulatory Limitations: no limitations - History of Present Illness Initial comments: 82-year-old male presents to the emergency department with dizziness. States that it's been progressively going on for months. He describes it as a sensation where he is lightheaded in the head and feels like he is going to lose his balance. He has been seen by cardiology for this. They did perform ultrasound of the carotids. They were concerned about one of his carotids and therefore they wanted to do a CAT scan. Patient admits that he used to walk 3 miles a day. Has become so dizzy that he does not participate in many daily activities. Presenting today for evaluation. He denies syncopal episode. No chest pain. No shortness of breath. No headaches or visual changes. Denies fevers. No head trauma. No other alleviating, precipitating or modifying factors - Related Data Home Medications Medication Instructions Recorded Confirmed Aspirin [Adult Low Dose Aspirin EC] 81 mg PO DAILY 01/12/16 04/01/22 Pantoprazole [Protonix] 40 mg PO DAILY 01/12/16 04/01/22 amLODIPine [Norvasc] 5 mg PO DAILY 07/01/21 04/01/22 Ketorolac 0.5% Ophth Soln [Acular 1 drop LEFT EYE BID 04/01/22 04/01/22 0.5%] Loteprednol Etabonate [Inveltys] 1 drop LEFT EYE BID 04/01/22 04/01/22 Pravastatin Sodium [Pravachol] 20 mg PO DAILY 04/01/22 04/01/22 Previous Rx's Medication Instructions Recorded Clopidogrel [Plavix] 75 mg PO DAILY 30 Days #30 tab 07/03/21 Metoprolol Tartrate [Lopressor] 25 mg PO BID 30 Days #60 tab 07/03/21 Allergies Allergy/AdvReac Type Severity Reaction Status Date / Time No Known Allergies Allergy Verified 04/01/22 19:13 Review of Systems ROS Statement: Those systems with pertinent positive or pertinent negative responses have been documented in the HPI. ROS Other: All systems not noted in ROS Statement are negative. Past Medical History Past Medical History: CVA/TIA, GERD/Reflux Additional Past Medical History / Comment(s): PRE CA LESIONS REMOVED IN PAST, LESIONS REMOVED FROM BACK 01/12/16, TIA 2014, STATES NO RESIDUAL EFFECTS History of Any Multi-Drug Resistant Organisms: None Reported Past Surgical History: Cholecystectomy, Coronary Bypass/CABG, Heart Catheterization With Stent Additional Past Surgical History / Comment(s): CABG X2 Past Anesthesia/Blood Transfusion Reactions: No Reported Reaction Date of Last Stent Placement:: 07/01/2021 Past Psychological History: No Psychological Hx Reported Smoking Status: Never smoker Past Alcohol Use History: Occasional Past Drug Use History: None Reported - Past Family History Mother Family Medical History: Cancer Additional Family Medical History / Comment(s): COLON Father Family Medical History: Coronary Artery Disease (CAD) General Exam Limitations: no limitations General appearance: alert, in no apparent distress Head exam: Present: atraumatic, normocephalic, normal inspection Eye exam: Present: normal appearance, PERRL, EOMI. Absent: scleral icterus, conjunctival injection, periorbital swelling ENT exam: Present: normal exam, mucous membranes moist Neck exam: Present: normal inspection. Absent: tenderness, meningismus, lymphadenopathy Respiratory exam: Present: normal lung sounds bilaterally. Absent: respiratory distress, wheezes, rales, rhonchi, stridor Cardiovascular Exam: Present: regular rate, normal rhythm, normal heart sounds. Absent: systolic murmur, diastolic murmur, rubs, gallop, clicks GI/Abdominal exam: Present: soft, normal bowel sounds. Absent: distended, tenderness, guarding, rebound, rigid Extremities exam: Present: normal inspection, full ROM, normal capillary refill. Absent: tenderness, pedal edema, joint swelling, calf tenderness Back exam: Present: normal inspection Neurological exam: Present: alert, oriented X3, CN II-XII intact, other (finger to nose is symmetric bilaterally) Psychiatric exam: Present: normal affect, normal mood Skin exam: Present: warm, dry, intact, normal color. Absent: rash Course Vital Signs 04/01/22 04/01/22 17:21 20:24 Temperature 98.2 F 98 F Pulse Rate 80 77 Respiratory 16 22 Rate Blood Pressure 155/82 148/78 O2 Sat by Pulse 98 98 Oximetry EKG Findings - EKG Comments: EKG Findings:: EKG demonstrates sinus rhythm with a rate of 65. IL interval 181. QRS 86. QTC 381. No acute ST segment elevations or depressions concerning for ischemic changes Medical Decision Making - Medical Decision Making On arrival patient is placed into trauma 1. A thorough history and physical exam was performed. IV access established laboratory studies are conducted. I did perform a CT angiography of the patient's head and neck which demonstrates occlusion of the right ICA. In the clinical setting this has been a chronic issue. I did call and speak with Dr. Colbert who will see the patient the outpatient setting. Patient is satisfied with this treatment plan. He is asked to return for any new or worsening symptoms. He is discharged home in stable condition - Lab Data Result diagrams: 04/01/22 18:26 04/01/22 18:26 Lab Results 04/01/22 04/01/22 04/01/22 Range/Units 18:26 18:26 18:26 WBC 4.8 (3.8-10.6) k/uL RBC 3.88 L (4.30-5.90) m/uL Hgb 12.9 L (13.0-17.5) gm/dL Hct 37.6 L (39.0-53.0) % MCV 96.9 (80.0-100.0) fL MCH 33.2 (25.0-35.0) pg MCHC 34.2 (31.0-37.0) g/dL RDW 12.7 (11.5-15.5) % Plt Count 202 (150-450) k/uL MPV 7.4 Neutrophils % 58 % Lymphocytes % 27 % Monocytes % 8 % Eosinophils % 3 % Basophils % 1 % Neutrophils # 2.8 (1.3-7.7) k/uL Lymphocytes # 1.3 (1.0-4.8) k/uL Monocytes # 0.4 (0-1.0) k/uL Eosinophils # 0.2 (0-0.7) k/uL Basophils # 0.0 (0-0.2) k/uL PT 10.5 (9.0-12.0) sec INR 1.0 (<1.2) APTT 23.0 (22.0-30.0) sec Sodium 136 L (137-145) mmol/L Potassium 4.3 (3.5-5.1) mmol/L Chloride 102 (98-107) mmol/L Carbon Dioxide 29 (22-30) mmol/L Anion Gap 5 mmol/L BUN 22 H (9-20) mg/dL Creatinine 0.89 (0.66-1.25) mg/dL Est GFR (CKD-EPI)AfAm >90 (>60 ml/min/1.73 sqM) Est GFR (CKD-EPI)NonAf 79 (>60 ml/min/1.73 sqM) Glucose 128 H (74-99) mg/dL Calcium 9.0 (8.4-10.2) mg/dL Total Bilirubin 0.4 (0.2-1.3) mg/dL AST 22 (17-59) U/L ALT 24 (4-49) U/L Alkaline Phosphatase 57 (38-126) U/L Troponin I (0.000-0.034) ng/mL Total Protein 7.3 (6.3-8.2) g/dL Albumin 4.4 (3.5-5.0) g/dL 04/01/22 Range/Units 18:26 WBC (3.8-10.6) k/uL RBC (4.30-5.90) m/uL Hgb (13.0-17.5) gm/dL Hct (39.0-53.0) % MCV (80.0-100.0) fL MCH (25.0-35.0) pg MCHC (31.0-37.0) g/dL RDW (11.5-15.5) % Plt Count (150-450) k/uL MPV Neutrophils % % Lymphocytes % % Monocytes % % Eosinophils % % Basophils % % Neutrophils # (1.3-7.7) k/uL Lymphocytes # (1.0-4.8) k/uL Monocytes # (0-1.0) k/uL Eosinophils # (0-0.7) k/uL Basophils # (0-0.2) k/uL PT (9.0-12.0) sec INR (<1.2) APTT (22.0-30.0) sec Sodium (137-145) mmol/L Potassium (3.5-5.1) mmol/L Chloride (98-107) mmol/L Carbon Dioxide (22-30) mmol/L Anion Gap mmol/L BUN (9-20) mg/dL Creatinine (0.66-1.25) mg/dL Est GFR (CKD-EPI)AfAm (>60 ml/min/1.73 sqM) Est GFR (CKD-EPI)NonAf (>60 ml/min/1.73 sqM) Glucose (74-99) mg/dL Calcium (8.4-10.2) mg/dL Total Bilirubin (0.2-1.3) mg/dL AST (17-59) U/L ALT (4-49) U/L Alkaline Phosphatase (38-126) U/L Troponin I <0.012 (0.000-0.034) ng/mL Total Protein (6.3-8.2) g/dL Albumin (3.5-5.0) g/dL Disposition Clinical Impression: Ataxia, Carotid occlusion, right Disposition: HOME SELF-CARE Condition: Stable Instructions (If sedation given, give patient instructions): Dizziness (ED) Additional Instructions: Please call and make an appointment with Dr. Colbert from a vascular surgery. Return to the emergency room for any new or worsening symptoms Is patient prescribed a controlled substance at d/c from ED?: No Referrals: Remi Orlando MD [Primary Care Provider] - 1-2 days Michele Colbert DO [STAFF PHYSICIAN] - 1-2 days Time of Disposition: 20:52
== END 2022-04-01 21:08 | disposition home or self-care (01) ==
LOC: EC 17:16
DX: I65.21 Occlusion and stenosis of right carotid artery (principal); R27.0 Ataxia, unspecified; K21.9 Gastro-esophageal reflux disease without esophagitis; Z79.899 Other long term (current) drug therapy; Z79.82 Long term (current) use of aspirin; Z86.73 Personal history of transient ischemic attack (TIA), and cerebral infarction without residual deficits
CPT/HCPCS: 36415; 93005; 80053; 84484; 85025; 85610; 85730; 71046; 70496; 70450; 70498; 99285; Q9967

== ENCOUNTER → 2025-05-07 | Outpatient (CLI) | payer MEDICARE ==
[2025-05-07 11:38] LABS: African American GFR (CKD) >90 (>60 ml/min/1.73 sqM); Blood Urea Nitrogen 18 mg/dL (9-20); Non-African American GFR(CKD) 81 (>60 ml/min/1.73 sqM)
--- NOTE | 2025-05-09 19:11 | CT ---
EXAMINATION TYPE: CT chest w con DATE OF EXAM: 05/07/2025 12:26 PM COMPARISON: None. CLINICAL INDICATION: Male, 85 years old with history of R91.8 SPN, nodules TECHNIQUE: Axial images were obtained at 5 mm thick sections. Reconstructed images are reviewed on [employer] computer in the coronal plane. Contrast used:100 ml mL of Isovue 300 with IV Contrast, (none if empty) Oral contrast used: (none if empty) CT DLP: 317 mGycm, Automated exposure control for dose reduction was used. FINDINGS: Portion of the thyroid visualized is normal. Calcification is in the posterior lateral right lung. Image 46. There is a 0.6 cm nodule anterior right apex. Series 4 image 7. There is a 0.3 cm nodule along the pleural margin posterior lateral right upper lobe. Series 4 image 15. Some peripheral increased lung markings at the right lung the dependent portion. Correlate for so me pulmonary fibrosis. Emphysematous changes are present. No enlarged mediastinal or hilar adenopathy is evident. The ascending aorta diameter at the level o f the main pulmonary artery is 3.5 cm. The main pulmonary artery diameter at the bifurcation is 2.7 cm. Severe coronary artery calcifications present. Limited CT sections are obtained through the upper abdomen. Abdomen is essentially unremarkable. IMPRESSION: 1. Couple small nodules right lung. Follow-up exam in one year recommended. 2. Some pulmonary fibrosis possibly atelectasis along the dependent right lung [facility], , 05/09/2025 7:09 PM
== END | disposition home or self-care (01) ==
LOC: RADCTMAIN 10:55
PROVIDERS: ATTEND Family Medicine
DX: J84.10 Pulmonary fibrosis, unspecified (principal); R91.8 Other nonspecific abnormal finding of lung field
CPT/HCPCS: 82565; 84520; 71260; 36415; Q9967